=== PATIENT | female | born 1980 | race American Indian/Alaskan Native ===

== ENCOUNTER 2016-09-28 10:48 | Emergency (ER) | payer MEDICAID, OTHER ==
[2016-09-28 11:43] VITALS: BP 133/86
[2016-09-28] MEDS ORDERED: Ondansetron 4 MG/2 ML SDV IV ONE (11:45)
[2016-09-28] MEDS ORDERED: diphenhydrAMINE 50 MG/ML SDV IVPUSH ONE (11:45)
[2016-09-28] MEDS ORDERED: Sodium Chloride 0.9% 10 ML Syringe FLUSH PRN (11:45)
[2016-09-28] MEDS ORDERED: Sodium Chloride 0.9% 1,000 ML IV ONE (11:45)
[2016-09-28] MEDS ORDERED: cefTRIAXone 1 GM in Sodium Chloride 0.9% 50 ML IV ONE (11:46)
[2016-09-28] MEDS ORDERED: Azithromycin 250 MG Tab PO ONE (11:46)
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
[2016-09-28 12:25] LABS: CHLORIDE,CL 110 mmol/L (101-111); SODIUM,NA 144 mmol/L (135-145)
[2016-09-28] MEDS ORDERED: Ketorolac 30 MG/ML SDV IVPUSH ONE (12:43)
[2016-09-28] MEDS ORDERED: Haloperidol Lactate 5 MG/ML SDV IVPUSH ONE (12:52)
== END 2016-09-28 13:40 | disposition home or self-care (01) ==
LOC: DL.ED 10:48
DX: K52.9 Noninfective gastroenteritis and colitis, unspecified (principal); E86.0 Dehydration; T76.21XA Adult sexual abuse, suspected, initial encounter; J45.909 Unspecified asthma, uncomplicated; F17.210 Nicotine dependence, cigarettes, uncomplicated; G43.909 Migraine, unspecified, not intractable, without status migrainosus; Z88.8 Allergy status to other drugs, medicaments and biological substances; Z79.899 Other long term (current) drug therapy; Z90.49 Acquired absence of other specified parts of digestive tract
CPT/HCPCS: 36415; 80053; 80305; 81001; 85025; 86803; 87210; 87340; 87389; 87491; 87591; 96365; 96368; 96375; 99284; A9270; J0696; J1200; J1630; J1885; J2405; J7030; J7050

== ENCOUNTER 2016-09-29 20:44 | Emergency (ER) | payer MEDICAID, OTHER ==
[2016-09-29 22:37] VITALS: BP 121/84
--- NOTE | 2016-09-29 23:23 | EDM.PDOC ---
ED HPI GENERAL MEDICAL PROBLEM - General Chief Complaint: ENT Problem Stated Complaint: TOOTH PULLED/PAIN IN AREA Time Seen by Provider: 09/29/16 22:40 Source of Information: Reports: Patient History Limitations: Reports: No Limitations - History of Present Illness INITIAL COMMENTS - FREE TEXT/NARRATIVE: lower left tooth pulled earlier today increased pain since Onset: Today Left Gums Pain Score (Numeric/FACES): 8 - Related Data Allergies Allergy/AdvReac Type Severity Reaction Status Date / Time acetaminophen Allergy Unknown Shortness Verified 09/29/16 20:59 [From Darvocet-N 100] of Breath erythromycin base Allergy Unknown Cannot Verified 09/29/16 20:59 [Erythromycin Base] Remember metoclopramide HCl Allergy Unknown Shortness Verified 09/29/16 20:59 [From Reglan] of Breath nabumetone [From Relafen] Allergy Unknown Shortness Verified 09/29/16 20:59 of Breath propoxyphene napsylate Allergy Unknown Shortness Verified 09/29/16 20:59 [From Darvocet-N 100] of Breath Home Meds: Home Meds Multivitamin [Multivitamins] 1 tab PO DAILY 09/28/16 [History] Past Medical History - Past Health History Medical/Surgical History: Denies Medical/Surgical History HEENT History: Reports: None Cardiovascular History: Reports: None Respiratory History: Reports: Asthma Gastrointestinal History: Reports: None Genitourinary History: Reports: None 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, , Other (See Below) Other OB/BYN History: tubal ligation Musculoskeletal History: Reports: None Neurological History: Reports: Migraines Other Neuro History: botox treatment took care of headaches Psychiatric History: Reports: None Endocrine/Metabolic History: Reports: None Hematologic History: Reports: None Immunologic History: Reports: None Oncologic (Cancer) History: Reports: None Dermatologic History: Reports: None - Infectious Disease History Infectious Disease History: Reports: Measles - Past Surgical History HEENT Surgical History: Reports: Tonsillectomy Respiratory Surgical History: Reports: None GI Surgical History: Reports: Cholecystectomy Female Surgical History: Reports: Tubal Ligation Social & Family History - Family History Family Medical History: Noncontributory - Tobacco Use Smoking Status *Q: Never Smoker Years of Tobacco use: 1 Packs/Tins Daily: 0.1 Second Hand Smoke Exposure: No - Caffeine Use Caffeine Use: Reports: Coffee, Energy Drinks, Soda Other Caffeine Use: Has 1 energy drink and and 1 soda per day. - Alcohol Use Days Per Week of Alcohol Use: 0 Number of Drinks Per Day: 1 Total Drinks Per Week: 0 - Recreational Drug Use Recreational Drug Use: No - Living Situation & Occupation Living situation: Reports: Single, with Family Occupation: Employed ED ROS ENT - Review of Systems Review Of Systems: See Below Constitutional: Denies: No Symptoms HEENT: Reports: Other (dental pain lower left) Cardiovascular: Reports: No Symptoms GI/Abdominal: Reports: No Symptoms Skin: Reports: No Symptoms Neurological: Reports: No Symptoms ED EXAM, ENT - Physical Exam Exam: See Below Exam Limited By: No Limitations General Appearance: Alert, Moderate Distress Eye Exam: Bilateral Eye: PERRL Ears: Normal External Exam, Normal TMs Nose: Normal Inspection Mouth/Throat: Other (open socket left lower 3rd molar, lower left jaw tender, mild left lymphadenopathy). No: Normal Teeth Head: Atraumatic, Normocephalic Neck: Lymphadenopathy (L) (mild). No: Lymphadenopathy (R) Respiratory/Chest: No Respiratory Distress, Lungs Clear, Normal Breath Sounds Cardiovascular: Normal Peripheral Pulses, Regular Rate, Rhythm Neurological: Alert, Oriented Skin: Warm, Dry, Intact, Normal Color Course - Vital Signs Last Recorded V/S: Last Vital Signs Temp 97.5 F 09/29/16 22:37 Pulse 61 09/29/16 22:37 Resp 14 09/29/16 22:37 BP 121/84 09/29/16 22:37 Pulse Ox 100 09/29/16 22:37 - Orders/Labs/Meds Meds: Medications Discontinued Medications Generic Name Dose Route Start Last Admin Trade Name David PRN Reason Stop Dose Admin Hydrocodone Bitart/Acetaminophen Confirm 09/29/16 23:33 [place] 325-10 Mg Administered 09/29/16 23:34 Dose 3 tab .ROUTE .STK-MED ONE Cephalexin Confirm 09/29/16 23:33 Keflex Administered 09/29/16 23:34 Dose 1,000 mg .ROUTE .STK-MED ONE Departure - Departure Time of Disposition: 23:20 Disposition: Home, Self-Care 01 Condition: Good Clinical Impression: Dental abscess, Pain, dental - Discharge Information Instructions: Dental Dry Socket, [id number] Referrals: PCP,Unobtain [Primary Care Provider] - Forms: ED Department Discharge Additional Instructions: hydrocodone 10/325 one every 4 hours as needed for severe pain #3 ibuprofen 600mg one every 6-8 hours as needed for moderate pain, take with food. Rx #10 Keflex 500mg one 4 times daily Home #2 Rx #28 Follow up with dentist if not improving
[2016-09-29] MEDS ORDERED: Cephalexin 500 MG Cap ONE (23:33)
[2016-09-29] MEDS ORDERED: Cephalexin 500 MG Cap PO ONE (23:33)
[2016-09-29] MEDS ORDERED: Acetaminophen/HYDROcodone 325-10 MG Tab PO ONE (23:33)
[2016-09-29] MEDS ORDERED: Acetaminophen/HYDROcodone 325-10 MG Tab ONE (23:33)
== END 2016-09-29 23:38 | disposition home or self-care (01) ==
LOC: DL.ED 20:44
DX: K04.7 Periapical abscess without sinus (principal); Z88.8 Allergy status to other drugs, medicaments and biological substances; Z79.899 Other long term (current) drug therapy; J45.909 Unspecified asthma, uncomplicated; Z98.51 Tubal ligation status; Z90.49 Acquired absence of other specified parts of digestive tract; Z98.890 Other specified postprocedural states; Z88.6 Allergy status to analgesic agent
CPT/HCPCS: 99283; A9270

== ENCOUNTER 2016-11-09 19:38 | Emergency (ER) | payer MEDICAID, OTHER ==
[2016-11-09 19:48] VITALS: BP 127/72
[2016-11-09] MEDS ORDERED: Ondansetron 4 MG/2 ML SDV IV ONE (19:56)
[2016-11-09] MEDS ORDERED: Sodium Chloride 0.9% 10 ML Syringe FLUSH PRN (19:56)
[2016-11-09] MEDS ORDERED: Sodium Chloride 0.9% 1,000 ML IV ONE (20:26)
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
[2016-11-09] MEDS ORDERED: Ketorolac 30 MG/ML SDV IVPUSH ONE (20:35)
[2016-11-09] MEDS ORDERED: Ondansetron 4 MG Tab.DIS ONE (21:34)
[2016-11-09] MEDS ORDERED: Ondansetron 4 MG Tab.DIS PO ONE (21:34)
== END 2016-11-09 21:39 | disposition home or self-care (01) ==
LOC: DL.ED 19:38
DX: S06.0X0A Concussion without loss of consciousness, initial encounter (principal); F17.210 Nicotine dependence, cigarettes, uncomplicated; G43.919 Migraine, unspecified, intractable, without status migrainosus; Z88.8 Allergy status to other drugs, medicaments and biological substances; Z88.1 Allergy status to other antibiotic agents; Z98.890 Other specified postprocedural states; Z90.49 Acquired absence of other specified parts of digestive tract; Z98.51 Tubal ligation status; W51.XXXA Accidental striking against or bumped into by another person, initial encounter
CPT/HCPCS: 70450; 96361; 96374; 96375; 99283; A9270; J1885; J2405; J7030; J7050

== ENCOUNTER 2017-03-27 10:00 | Emergency (ER) | payer MEDICAID, OTHER ==
--- NOTE | 2017-03-27 10:16 | EDM.PDOCBH ---
ED HPI GENERAL MEDICAL PROBLEM - General Chief Complaint: Behavioral/Psych Stated Complaint: ANEXITY Time Seen by Provider: 03/27/17 10:16 Source of Information: Reports: Patient, Old Records, RN, RN Notes Reviewed History Limitations: Reports: No Limitations - History of Present Illness INITIAL COMMENTS - FREE TEXT/NARRATIVE: Arrives from home by POV with c/o increasing anxiety over the past few weeks, now with several days of recurrent panic attacks. Denies any specific situation or trigger. She did start smoking again to "calm her nerves", but it didn't help. Denies alcohol or substance use. She thinks her anxiety has been worse since moving back here from [place], and maybe due somewhat to the holidays as well. She took Zoloft 50mg for years to treat her anxiety, and it worked well but she hasn't needed it for a few years. She states that she went to [facility] for 2 days in a row and waited all day but they could not fit her in. 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) - Related Data Allergies Allergy/AdvReac Type Severity Reaction Status Date / Time acetaminophen Allergy Unknown Shortness Verified 11/09/16 19:48 [From Darvocet-N 100] of Breath erythromycin base Allergy Unknown Cannot Verified 11/09/16 19:48 [Erythromycin Base] Remember metoclopramide HCl Allergy Unknown Shortness Verified 11/09/16 19:48 [From Reglan] of Breath nabumetone [From Relafen] Allergy Unknown Shortness Verified 11/09/16 19:48 of Breath propoxyphene napsylate Allergy Unknown Shortness Verified 11/09/16 19:48 [From Darvocet-N 100] of Breath Home Meds: Home Meds Multivitamin [Multivitamins] 1 tab PO DAILY 09/28/16 [History] Past Medical History - Past Health History Medical/Surgical History: Denies Medical/Surgical History HEENT History: Reports: None Cardiovascular History: Reports: None Respiratory History: Reports: Asthma Gastrointestinal History: Reports: None Genitourinary History: Reports: None 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, , Other (See Below) Other OB/BYN History: tubal ligation Musculoskeletal History: Reports: None Neurological History: Reports: Migraines Other Neuro History: botox treatment took care of headaches Psychiatric History: Reports: Anxiety, Panic Attack Endocrine/Metabolic History: Reports: None Hematologic History: Reports: None Immunologic History: Reports: None Oncologic (Cancer) History: Reports: None Dermatologic History: Reports: None - Infectious Disease History Infectious Disease History: Reports: Measles - Past Surgical History HEENT Surgical History: Reports: Tonsillectomy Respiratory Surgical History: Reports: None GI Surgical History: Reports: Cholecystectomy Female Surgical History: Reports: Tubal Ligation Social & Family History - Family History Family Medical History: Noncontributory - Tobacco Use Smoking Status *Q: Current Some Day Smoker Years of Tobacco use: 2 Packs/Tins Daily: 0.1 Second Hand Smoke Exposure: Yes - Caffeine Use Caffeine Use: Reports: Coffee, Energy Drinks, Soda Other Caffeine Use: Has 1 energy drink and and 1 soda per day. - Alcohol Use Days Per Week of Alcohol Use: 0 Number of Drinks Per Day: 1 Total Drinks Per Week: 0 - Recreational Drug Use Recreational Drug Use: No - Living Situation & Occupation Living situation: Reports: Single, with Family Occupation: Employed ED ROS GENERAL - Review of Systems Review Of Systems: ROS reveals no pertinent complaints other than HPI. ED EXAM, BEHAVIORAL HEALTH - Physical Exam Exam: See Below Exam Limited By: No Limitations General Appearance: Alert, WD/WN, No Apparent Distress, Anxious Eye Exam: Bilateral Eye: EOMI, Normal Inspection, PERRL Ears: Hearing Grossly Normal Nose: Normal Inspection Throat/Mouth: Normal Inspection Head: Atraumatic, Normocephalic Neck: Normal Inspection Respiratory/Chest: No Respiratory Distress Cardiovascular: Regular Rate, Rhythm, No Edema Neurological: Alert, Normal Mood/Affect, CN II-XII Intact, Normal Cognition, Normal Gait, Normal Reflexes, No Motor/Sensory Deficits, Oriented x 3 Psychiatric: Alert, Normal Affect, Normal Cognition, Normal Mood, Oriented, Tearful, Other (anxious). No: Suicidal Plan, Suicidal Thoughts Skin Exam: Warm, Dry, Intact, Normal color, No rash COURSE, BEHAVIORAL HEALTH COMP - Course Vital Signs: Last Vital Signs Temp 36.9 C 03/27/17 10:03 Pulse 70 03/27/17 10:03 Resp 16 03/27/17 10:03 BP 109/70 12/22/17 10:03 Pulse Ox 100 03/27/17 10:03 Departure - Departure Time of Disposition: 10:24 Disposition: Home, Self-Care 01 Condition: Good Clinical Impression: Severe anxiety with panic - Discharge Information Instructions: Panic Attacks Forms: ED Department Discharge Additional Instructions: Rx: Zoloft 50mg Rx: Clonazepam 1mg *Do not drive while under the influence of this medication. Do no consume alcohol while taking Zoloft or Clonazepam. Avoid nicotine and caffeine to help reduce panic attacks. Follow up in clinic in the next 2 weeks with your primary provider for ongoing medication management.
[2017-03-27 10:19] VITALS: BP 109/70
== END 2017-03-27 10:42 | disposition home or self-care (01) ==
LOC: DL.ED 10:00
DX: F41.0 Panic disorder [episodic paroxysmal anxiety] (principal); F17.210 Nicotine dependence, cigarettes, uncomplicated; Z79.899 Other long term (current) drug therapy; Z88.1 Allergy status to other antibiotic agents; Z88.6 Allergy status to analgesic agent
CPT/HCPCS: 99283

== ENCOUNTER 2017-04-01 09:35 | Emergency (ER) | payer MEDICAID, OTHER ==
--- NOTE | 2017-04-01 09:41 | EDM.PDOCBH ---
ED HPI GENERAL MEDICAL PROBLEM - General Chief Complaint: Behavioral/Psych Stated Complaint: ANXIETY Time Seen by Provider: 04/01/17 09:37 Source of Information: Reports: Patient, Old Records, RN, RN Notes Reviewed History Limitations: Reports: No Limitations - History of Present Illness INITIAL COMMENTS - FREE TEXT/NARRATIVE: Pt seen here on 03/27/17 for anxiety. Now returns with c/o continued anxiety. 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), Other (see below) - Related Data Allergies Allergy/AdvReac Type Severity Reaction Status Date / Time acetaminophen Allergy Unknown Shortness Verified 04/01/17 09:45 [From Darvocet-N 100] of Breath erythromycin base Allergy Unknown Cannot Verified 04/01/17 09:45 [Erythromycin Base] Remember metoclopramide HCl Allergy Unknown Shortness Verified 04/01/17 09:45 [From Reglan] of Breath nabumetone [From Relafen] Allergy Unknown Shortness Verified 04/01/17 09:45 of Breath propoxyphene napsylate Allergy Unknown Shortness Verified 04/01/17 09:45 [From Darvocet-N 100] of Breath Home Meds: Home Meds Multivitamin [Multivitamins] 1 tab PO DAILY 09/28/16 [History] ClonazePAM [KlonoPIN] 1 mg PO DAILY 04/01/17 [History] Sertraline [Zoloft] 50 mg PO DAILY 04/01/17 [History] Past Medical History - Past Health History Medical/Surgical History: Denies Medical/Surgical History HEENT History: Reports: None Cardiovascular History: Reports: None Respiratory History: Reports: Asthma Gastrointestinal History: Reports: None Genitourinary History: Reports: None 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, , Other (See Below) Other OB/BYN History: tubal ligation Musculoskeletal History: Reports: None Neurological History: Reports: Migraines Other Neuro History: botox treatment took care of headaches Psychiatric History: Reports: Anxiety, Panic Attack Endocrine/Metabolic History: Reports: None Hematologic History: Reports: None Immunologic History: Reports: None Oncologic (Cancer) History: Reports: None Dermatologic History: Reports: None - Infectious Disease History Infectious Disease History: Reports: Measles - Past Surgical History HEENT Surgical History: Reports: Tonsillectomy Respiratory Surgical History: Reports: None GI Surgical History: Reports: Cholecystectomy Female Surgical History: Reports: Tubal Ligation Social & Family History - Family History Family Medical History: Noncontributory - Tobacco Use Smoking Status *Q: Current Some Day Smoker Years of Tobacco use: 2 Packs/Tins Daily: 0.1 Second Hand Smoke Exposure: Yes - Caffeine Use Caffeine Use: Reports: Coffee, Energy Drinks, Soda Other Caffeine Use: Has 1 energy drink and and 1 soda per day. - Alcohol Use Days Per Week of Alcohol Use: 0 Number of Drinks Per Day: 1 Total Drinks Per Week: 0 - Recreational Drug Use Recreational Drug Use: No - Living Situation & Occupation Living situation: Reports: Single, with Family Occupation: Employed ED ROS GENERAL - Review of Systems Review Of Systems: ROS reveals no pertinent complaints other than HPI. ED EXAM, BEHAVIORAL HEALTH - Physical Exam Exam: See Below Exam Limited By: No Limitations General Appearance: Alert, WD/WN, No Apparent Distress Eye Exam: Bilateral Eye: Normal Inspection Throat/Mouth: Normal Inspection, Normal Voice, No Airway Compromise Head: Atraumatic, Normocephalic Neck: Normal Inspection Respiratory/Chest: No Respiratory Distress Cardiovascular: Regular Rate, Rhythm Neurological: Alert, Normal Mood/Affect, CN II-XII Intact, Normal Cognition, Normal Gait, No Motor/Sensory Deficits, Oriented x 3 Psychiatric: Other (anxious). No: Homicidal Thoughts, Phobic, Suicidal Plan, Suicidal Thoughts, Auditory Hallucinations, Visual Hallucinations, Paranoid Thoughts Skin Exam: Warm, Dry, Intact, Normal color COURSE, BEHAVIORAL HEALTH COMP - Course Vital Signs: Last Vital Signs Temp 37.1 C 04/01/17 09:53 Pulse 88 04/01/17 09:53 Resp 18 04/01/17 09:53 BP 127/62 04/01/17 09:53 Pulse Ox 100 04/01/17 09:53 Orders, Labs, Meds: Medications Discontinued Medications Generic Name Dose Route Start Last Admin Trade Name David PRN Reason Stop Dose Admin Lorazepam 1 mg 04/01/17 10:05 04/01/17 10:08 Ativan PO 04/01/17 10:06 1 mg ONETIME ONE Administration Discharge vs Psych Eval/Treatment:: 04/01/17 10:12 I called [facility] and spoke with Dr. Tony, who will see the pt for recheck and medication management on Apr.08. Departure - Departure Time of Disposition: 10:12 Disposition: Home, Self-Care 01 Condition: Good Clinical Impression: Severe anxiety with panic - Discharge Information Referrals: Lizbeth Tony MD [Primary Care Provider] - Forms: ED Department Discharge Additional Instructions: Rx: Zoloft 50mg Rx: Clonazepam 1mg Call [facility] this morning to schedule and appointment. I spoke with Dr. Tony and she will see you in clinic on Thursday, Apr.08.
[2017-04-01 09:54] VITALS: BP 127/62
[2017-04-01] MEDS ORDERED: LORazepam 1 MG Tab PO ONE (10:05)
== END 2017-04-01 10:45 | disposition home or self-care (01) ==
LOC: DL.ED 09:35
DX: F41.0 Panic disorder [episodic paroxysmal anxiety] (principal); F17.210 Nicotine dependence, cigarettes, uncomplicated; Z88.8 Allergy status to other drugs, medicaments and biological substances; Z88.1 Allergy status to other antibiotic agents; Z79.899 Other long term (current) drug therapy; Z88.6 Allergy status to analgesic agent
CPT/HCPCS: 99283; A9270

== ENCOUNTER 2017-06-17 00:04 | Emergency (ER) | payer MEDICAID, OTHER ==
[2017-06-17 00:15] VITALS: BP 123/67
[2017-06-17 01:03] LABS: CHLORIDE,CL 105 mmol/L (101-111); SODIUM,NA 138 mmol/L (135-145)
[2017-06-17] MEDS: Ibuprofen 600 MG Tab PO ONE (01:39)
[2017-06-17] MEDS: Cyclobenzaprine 10 MG Tab PO ONE (01:39)
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
== END 2017-06-17 02:32 | disposition home or self-care (01) ==
LOC: DL.ED 00:04
DX: S16.1XXA Strain of muscle, fascia and tendon at neck level, initial encounter (principal); F17.210 Nicotine dependence, cigarettes, uncomplicated; J45.909 Unspecified asthma, uncomplicated; Z79.899 Other long term (current) drug therapy; Z88.6 Allergy status to analgesic agent; Z88.1 Allergy status to other antibiotic agents; Z88.8 Allergy status to other drugs, medicaments and biological substances; Y04.0XXA Assault by unarmed brawl or fight, initial encounter
CPT/HCPCS: 36415; 70450; 70486; 72125; 72128; 80053; 80305; 81001; 85025; 99285; A9270; G0480

== ENCOUNTER 2017-07-04 10:45 | Emergency (ER) | payer MEDICAID, OTHER ==
[2017-07-04 11:04] VITALS: BP 119/71
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
== END 2017-07-04 11:21 | disposition home or self-care (01) ==
LOC: DL.ED 10:45
DX: M54.12 Radiculopathy, cervical region (principal); M25.512 Pain in left shoulder; F17.210 Nicotine dependence, cigarettes, uncomplicated; Z79.899 Other long term (current) drug therapy; Z88.6 Allergy status to analgesic agent; Z88.1 Allergy status to other antibiotic agents; Z88.8 Allergy status to other drugs, medicaments and biological substances
CPT/HCPCS: 99283

== ENCOUNTER 2017-11-25 09:58 | Emergency (ER) | payer MEDICAID, OTHER ==
[2017-11-25] MEDS ORDERED: Sodium Chloride 0.9% 1,000 ML IV ONE (10:36)
[2017-11-25] MEDS ORDERED: Ondansetron 4 MG/2 ML SDV IV ONE (10:36)
--- NOTE | 2017-11-25 10:41 | EDM.PDOC ---
ED HPI GENERAL MEDICAL PROBLEM - General Chief Complaint: Abdominal Pain Stated Complaint: APPENDIX, SENT FROM S Time Seen by Provider: 11/25/17 10:30 Source of Information: Reports: Patient History Limitations: Reports: No Limitations - History of Present Illness INITIAL COMMENTS - FREE TEXT/NARRATIVE: This 37 yo female patient reports to the ED with left lower quadrant abdominal pain. The patient reports her symptoms started yesterday and have been getting worse. The patient reports her pain gets better when she presses on her left lower abdomen. The patient reports that she did have a tubal ligation in the past. The patient reports that she did report to the [facility], but was advised to come to the ED by the nurse due to a possible appendicitis. The patient reports that she has not taken anything for her pain due to feeling nauseated. Onset Date: 11/24/17 Duration: Constant, Getting Worse Location: Reports: Abdomen (LLQ) Quality: Reports: Ache, Sharp, Stabbing Severity: Severe (Rated pain at a 7/10) Improves with: Reports: Other (pressing on her left lower quadrant) Worsens with: Reports: Movement Associated Symptoms: Reports: Nausea/Vomiting Left Lower Abdominal Pain Score (Numeric/FACES): 7 - Related Data Allergies Allergy/AdvReac Type Severity Reaction Status Date / Time acetaminophen Allergy Unknown Shortness Verified 06/17/17 00:23 [From Darvocet-N 100] of Breath erythromycin base Allergy Unknown Cannot Verified 06/17/17 00:23 [Erythromycin Base] Remember metoclopramide HCl Allergy Unknown Shortness Verified 06/17/17 00:23 [From Reglan] of Breath nabumetone [From Relafen] Allergy Unknown Shortness Verified 06/17/17 00:23 of Breath propoxyphene napsylate Allergy Unknown Shortness Verified 06/17/17 00:23 [From Darvocet-N 100] of Breath Home Meds: Home Meds Multivitamin [Multivitamins] 1 tab PO DAILY 09/28/16 [History] ClonazePAM [KlonoPIN] 0.5 mg PO DAILY 04/01/17 [History] Ibuprofen 1 tab PO Q4HR PRN 07/04/17 [History] busPIRone HCl [Buspirone HCl] 1 tab PO DAILY 07/04/17 [History] Past Medical History - Past Health History Medical/Surgical History: Denies Medical/Surgical History HEENT History: Reports: None Cardiovascular History: Reports: None Respiratory History: Reports: Asthma Gastrointestinal History: Reports: None Genitourinary History: Reports: None 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, , Other (See Below) Other COKE CRUSHER OPERATOR History: tubal ligation Musculoskeletal History: Reports: None Neurological History: Reports: Migraines Other Neuro History: botox treatment took care of headaches Psychiatric History: Reports: Anxiety, Panic Attack Endocrine/Metabolic History: Reports: None Hematologic History: Reports: None Immunologic History: Reports: None Oncologic (Cancer) History: Reports: None Dermatologic History: Reports: None - Infectious Disease History Infectious Disease History: Reports: Measles - Past Surgical History HEENT Surgical History: Reports: Tonsillectomy Respiratory Surgical History: Reports: None GI Surgical History: Reports: Cholecystectomy Female Surgical History: Reports: Tubal Ligation Social & Family History - Family History Family Medical History: Noncontributory - Tobacco Use Smoking Status *Q: Current Every Day Smoker Years of Tobacco use: 1 Packs/Tins Daily: 1 - Caffeine Use Caffeine Use: Reports: Coffee, Energy Drinks, Soda, Tea Other Caffeine Use: Has 1 energy drink and and 1 soda per day. - Recreational Drug Use Recreational Drug Use: No - Living Situation & Occupation Living situation: Reports: Single, with Family Occupation: Employed ED ROS GENERAL - Review of Systems Review Of Systems: ROS reveals no pertinent complaints other than HPI. ED EXAM, GI/ABD - Physical Exam Exam: See Below Exam Limited By: No Limitations General Appearance: Alert, WD/WN, Moderate Distress Eyes: Bilateral: Normal Appearance, EOMI Ears: Normal External Exam, Normal Canal, Hearing Grossly Normal, Normal TMs Nose: Normal Inspection, Normal Mucosa, No Blood Throat/Mouth: Normal Inspection, Normal Lips, Normal Teeth, Normal Gums, Normal Oropharynx, Normal Voice, No Airway Compromise Head: Atraumatic, Normocephalic Neck: Normal Inspection, Supple, Non-Tender, Full Range of Motion Respiratory/Chest: No Respiratory Distress, Lungs Clear, Normal Breath Sounds, No Accessory Muscle Use, Chest Non-Tender Cardiovascular: Normal Peripheral Pulses, Regular Rate, Rhythm, No Edema, No Gallop, No JVD, No Murmur, No Rub GI/Abdominal Exam: Normal Bowel Sounds, Soft, No Organomegaly, No Distention, No Abnormal Bruit, No Mass, Guarding, Tender (LLQ ) (Female) Exam: Deferred Rectal (Female) Exam: Deferred Back Exam: Normal Inspection, Full Range of Motion. No: CVA Tenderness (L), CVA Tenderness (R) Extremities: Normal Inspection, Normal Range of Motion, Non-Tender, Normal Capillary Refill, No Pedal Edema Neurological: Alert, Oriented, CN II-XII Intact, Normal Cognition, Normal Gait, Normal Reflexes, No Motor/Sensory Deficits Psychiatric: Normal Affect, Normal Mood Skin Exam: Warm, Dry, Intact, Normal Color, No Rash Lymphatic: No Adenopathy Course - Vital Signs Last Recorded V/S: Last Vital Signs Temp 37.0 C 11/25/17 12:22 Pulse 67 11/25/17 12:22 Resp 15 11/25/17 12:22 BP 120/96 H 11/25/17 12:22 Pulse Ox 100 11/25/17 12:22 - Orders/Labs/Meds Orders: Active Orders 24 hr Category Date Time Status UA W/MICROSCOPIC [URIN] Stat Lab 11/25/17 10:43 Ordered Sodium Chloride 0.9% [Normal Saline] 1,000 ml Med 11/25/17 10:36 Active IV .BOLUS Medication Orders Sodium Chloride (Normal Saline) 1,000 mls @ 250 mls/hr IV .BOLUS ONE Stop: 11/25/17 14:35 Last Admin: 11/25/17 10:51 Dose: 250 mls/hr Labs: Laboratory Tests 11/25/17 11/25/17 11/25/17 Range/Units 10:42 10:42 10:43 WBC 7.3 (5.0-10.0) 10^3/uL RBC 4.56 (4.2-5.4) 10^6/uL Hgb 10.5 L (12.0-16.0) g/dL Hct 34.4 L (37.0-47.0) % MCV 75.4 L (80-100) fL MCH 23.0 L (27.0-34.0) pg MCHC 30.5 L (33.0-35.0) g/dL Plt Count 344 (150-450) 10^3/uL Neut % (Auto) 58.7 (42.2-75.2) % Lymph % (Auto) 29.0 (20.5-50.1) % [place] % (Auto) 9.0 H (2-8) % Eos % (Auto) 3.0 (1.0-3.0) % Baso % (Auto) 0.3 (0.0-1.0) % Sodium 137 (135-145) mmol/L Potassium 3.6 (3.6-5.0) mmol/L Chloride 106 (101-111) mmol/L Carbon Dioxide 23.0 (21.0-31.0) mmol/L Anion Gap 11.6 BUN 11 (7-18) mg/dL Creatinine 0.8 (0.6-1.3) mg/dL Est Cr Clr Drug Dosing 87.48 mL/min Estimated GFR (MDRD) > 60 BUN/Creatinine Ratio 13.75 Glucose 108 H (74-105) mg/dL Calcium 8.9 (8.4-10.2) mg/dl Total Bilirubin 0.6 (0.2-1.0) mg/dL AST 31 (10-42) IU/L ALT 33 (10-60) IU/L Alkaline Phosphatase 66 (42-121) IU/L Total Protein 7.6 (6.7-8.2) g/dl Albumin 4.1 (3.2-5.5) g/dl Globulin 3.5 Albumin/Globulin Ratio 1.17 Urine Color Yellow (YELLOW) Urine Appearance Slightly cloudy (CLEAR) Urine pH 6.0 (5.0-9.0) Ur Specific [place] 1.010 (1.005-1.030) Urine Protein Negative (NEGATIVE) Urine Glucose (UA) Negative (NEGATIVE) Urine Ketones Negative (NEGATIVE) Urine Occult Blood Negative (NEGATIVE) Urine Nitrite Negative (NEGATIVE) Urine Bilirubin Negative (NEGATIVE) Urine Urobilinogen 0.2 (0.2-1.0) mg/dL Ur Leukocyte Esterase Negative (NEGATIVE) Urine RBC 0-5 /HPF Urine WBC 0-5 (0-5/HPF) /HPF Ur Epithelial Cells Few /HPF Urine Bacteria Few (0-FEW/HPF) /HPF Urine Mucus Few H /LPF Urine Other See note Meds: Medications Generic Name Dose Route Start Last Admin Trade Name Freq PRN Reason Stop Dose Admin Sodium Chloride 1,000 mls @ 250 mls/hr 11/25/17 10:36 11/25/17 10:51 Normal Saline IV 11/25/17 14:35 250 mls/hr .BOLUS ONE Administration Discontinued Medications Generic Name Dose Route Start Last Admin Trade Name David PRN Reason Stop Dose Admin Iopamidol 75 ml 11/25/17 11:30 11/25/17 11:53 Isovue-300 (61%) IVPUSH 11/25/17 11:31 75 ml ONETIME ONE Administration Morphine Sulfate 2 mg 11/25/17 11:33 11/25/17 11:42 Morphine IVPUSH 11/25/17 11:34 Not Given ONETIME ONE Morphine Sulfate Confirm 11/25/17 11:38 11/25/17 11:41 Morphine Administered 11/25/17 11:39 2 mg Dose Administration 4 mg .ROUTE .STK-MED ONE Morphine Sulfate 2 mg 11/25/17 12:50 11/25/17 13:00 Morphine IVPUSH 11/25/17 12:51 Not Given ONETIME ONE Morphine Sulfate Confirm 11/25/17 12:55 11/25/17 13:02 Morphine Administered 11/25/17 12:56 2 mg Dose Administration 4 mg .ROUTE .STK-MED ONE Ondansetron HCl 4 mg 11/25/17 10:36 11/25/17 10:51 Zofran IV 11/25/17 10:37 4 mg ONETIME ONE Administration Departure - Departure Time of Disposition: 13:33 Disposition: Home, Self-Care 01 Condition: Fair Clinical Impression: Diverticulosis large intestine w/o perforation or abscess w/o bleeding - Discharge Information *PRESCRIPTION DRUG MONITORING PROGRAM REVIEWED*: Yes *COPY OF PRESCRIPTION DRUG MONITORING REPORT IN PATIENT SELAM: Not Applicable Instructions: Diverticulosis Forms: ED Department Discharge Care Plan Goals: The patient was advised of the examination, lab and CT results during the visit. The patient was discharged with scripts for Cipro (500 mg) to take 1 by mouth 2 times per day, Metronidazole (500 mg) to take 1 by mouth 3 times per day and [place] (5/325) #8 to take 1 by mouth every 6 hours as needed. If the patient has any additional symptoms or concerns, the patient should either follow-up with her primary care facility or return to the emergency department. - My Orders Last 24 Hours: My Active Orders 11/25/17 10:36 Sodium Chloride 0.9% [Normal Saline] 1,000 ml IV .BOLUS 11/25/17 10:43 UA W/MICROSCOPIC [URIN] Stat - Assessment/Plan Last 24 Hours: My Active Orders 11/25/17 10:36 Sodium Chloride 0.9% [Normal Saline] 1,000 ml IV .BOLUS 11/25/17 10:43 UA W/MICROSCOPIC [URIN] Stat
[2017-11-25 11:08] LABS: ANION GAP 11.6; CHLORIDE,CL 106 mmol/L (101-111); SODIUM,NA 137 mmol/L (135-145)
[2017-11-25] MEDS ORDERED: Iopamidol 612 MG/ML 75 ML Bottle IVPUSH ONE (11:30)
[2017-11-25] MEDS ORDERED: Morphine 2 MG/ML Syringe IVPUSH ONE ×2 (11:33→12:50)
[2017-11-25] MEDS ORDERED: Morphine 4 MG/ML Syringe ONE (11:38)
[2017-11-25 12:23] VITALS: BP 120/96
[2017-11-25] MEDS: Morphine 4 MG/ML Syringe ONE ×2 (13:00→13:02)
--- NOTE | 2017-11-25 13:20 | CT ---
Clinical history: 37-year-old 157 pound female "smoker" with known kidney stones and now left lower a bdominal pain (no hematuria and WBC is normal). Scan technique: Volume acquisition of data from the abdomen and pelvis obtained without oral contrast but during intravenous infusion 75 cc nonionic Isovue contrast while patient was lying supine on the Siemens multi slice scanner [place], [place]. All data archived in [employer] PACS system for storage, reformatting axial/sagittal/coronal planes and study. Interpretation: 1. Diverticula sigmoid colon without current signs of associated inflammation i.e. no pericolonic inf lammatory "dirty" peritoneal fat, abscess or mechanical bowel obstruction. 2. Midline uterus unremarkable. No adnexal mass lesions or free fluid in the cul-de-sac. Symmetricall y distended normal appearing urinary bladder without intraluminal calcification. 3. Cholecystectomy. Liver, stomach, spleen, pancreas, adrenal glands and kidneys unremarkable except for tiny punctate calcifications upper pole calyces kidneys and lower pole calyx of the left kidney ( no obstructive uropathy) i.e. nephrolithiasis. 4. No ventral wall or inguinal hernias. Lumbar spine unremarkable. 5. Normal caliber aortoiliac vessels. No sign of aneurysm or dissection. 6. Normal cardiac silhouette. Lung bases clear. CONCLUSION: Bilateral nephrolithiasis (no obstruction). Sigmoid diverticulosis (no inflammation). Cho lecystectomy.
== END 2017-11-25 13:42 | disposition home or self-care (01) ==
LOC: DL.ED 09:58
DX: K57.30 Diverticulosis of large intestine without perforation or abscess without bleeding (principal); F17.210 Nicotine dependence, cigarettes, uncomplicated; Z88.1 Allergy status to other antibiotic agents; Z88.8 Allergy status to other drugs, medicaments and biological substances; Z79.899 Other long term (current) drug therapy
CPT/HCPCS: 36415; 74177; 80053; 81001; 85025; 96361; 96374; 96375; 96376; 99283; 99284; J2270; J2405; J7030; Q9967

== ENCOUNTER 2017-11-27 16:57 | Emergency (ER) | payer OTHER ==
[2017-11-27 17:18] VITALS: BP 119/60
[2017-11-27] MEDS ORDERED: Sodium Chloride 0.9% 1,000 ML IV ONE (17:53)
[2017-11-27] MEDS ORDERED: Ondansetron 4 MG/2 ML SDV IV ONE (17:53)
--- NOTE | 2017-11-27 18:13 | EDM.PDOC ---
<Edgar Walsh M - Last Filed: 11/27/17 18:46> ED HPI GENERAL MEDICAL PROBLEM - General Chief Complaint: Abdominal Pain Stated Complaint: PAIN IN COLON. [phone] Time Seen by Provider: 11/27/17 17:55 Source of Information: Reports: Patient History Limitations: Reports: No Limitations - History of Present Illness INITIAL COMMENTS - FREE TEXT/NARRATIVE: This 37 yo female patient reports to the ED due to continued abdominal pain. The patient reports her pain is in the left lower quadrant and has gotten worse than it was 2 days ago. The patient was seen in the ED 2 days ago for similar symptoms. The patient was started on Cipro, Metronidazole and Viborg for diverticulitis. The patient reports that since she started the medications, she has been nauseated and unable to eat or drink anything. The patient did report to the ED drinking a large soda. Duration: Day(s):, Constant, Getting Worse Location: Reports: Abdomen (LLQ) Quality: Reports: Ache, Dull Severity: Moderate Improves with: Reports: None Worsens with: Reports: None Context: Reports: Other Associated Symptoms: Reports: No Other Symptoms - Related Data Allergies Allergy/AdvReac Type Severity Reaction Status Date / Time acetaminophen Allergy Unknown Shortness Verified 11/27/17 17:07 [From Darvocet-N 100] of Breath erythromycin base Allergy Unknown Cannot Verified 11/27/17 17:07 [Erythromycin Base] Remember metoclopramide HCl Allergy Unknown Shortness Verified 11/27/17 17:07 [From Reglan] of Breath nabumetone [From Relafen] Allergy Unknown Shortness Verified 11/27/17 17:07 of Breath propoxyphene napsylate Allergy Unknown Shortness Verified 11/27/17 17:07 [From Darvocet-N 100] of Breath Home Meds: Home Meds PNV95/Ferrous Fumarate/FA [ Tablet] 1 tab PO DAILY 11/27/17 [History] Past Medical History - Past Health History Medical/Surgical History: Denies Medical/Surgical History HEENT History: Reports: None Cardiovascular History: Reports: None Respiratory History: Reports: Asthma Gastrointestinal History: Reports: None Genitourinary History: Reports: None 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, , Other (See Below) Other PIECE DYER History: tubal ligation Musculoskeletal History: Reports: None Neurological History: Reports: Migraines Other Neuro History: botox treatment took care of headaches Psychiatric History: Reports: Anxiety, Panic Attack Endocrine/Metabolic History: Reports: None Hematologic History: Reports: None Immunologic History: Reports: None Oncologic (Cancer) History: Reports: None Dermatologic History: Reports: None - Infectious Disease History Infectious Disease History: Reports: Measles - Past Surgical History HEENT Surgical History: Reports: Tonsillectomy Respiratory Surgical History: Reports: None GI Surgical History: Reports: Cholecystectomy Female Surgical History: Reports: Tubal Ligation Social & Family History - Family History Family Medical History: Noncontributory - Tobacco Use Smoking Status *Q: Current Every Day Smoker Years of Tobacco use: 4 Packs/Tins Daily: 0.5 - Caffeine Use Caffeine Use: Reports: Coffee, Energy Drinks, Soda, Tea Other Caffeine Use: Has 1 energy drink and and 1 soda per day. - Recreational Drug Use Recreational Drug Use: No - Living Situation & Occupation Living situation: Reports: Single, with Family Occupation: Employed ED ROS GENERAL - Review of Systems Review Of Systems: ROS reveals no pertinent complaints other than HPI. ED EXAM, GI/ABD - Physical Exam Exam: See Below Exam Limited By: No Limitations General Appearance: Alert, WD/WN, Moderate Distress Eyes: Bilateral: Normal Appearance, EOMI, Erythema Ears: Normal External Exam, Normal Canal, Hearing Grossly Normal, Normal TMs Nose: Normal Inspection, Normal Mucosa, No Blood Throat/Mouth: Normal Inspection, Normal Lips, Normal Teeth, Normal Gums, Normal Oropharynx, Normal Voice, No Airway Compromise Head: Atraumatic, Normocephalic Neck: Normal Inspection, Supple, Non-Tender, Full Range of Motion Respiratory/Chest: No Respiratory Distress, Lungs Clear, Normal Breath Sounds, No Accessory Muscle Use, Chest Non-Tender Cardiovascular: Normal Peripheral Pulses, Regular Rate, Rhythm, No Edema, No Gallop, No JVD, No Murmur, No Rub GI/Abdominal Exam: No Organomegaly, No Distention, No Abnormal Bruit, No Mass, Pelvis Stable, Tender (LLQ) (Female) Exam: Deferred Rectal (Female) Exam: Deferred Back Exam: Normal Inspection, Full Range of Motion, NT Extremities: Normal Inspection, Normal Range of Motion, Non-Tender, Normal Capillary Refill, No Pedal Edema Neurological: Alert, Oriented, CN II-XII Intact, Normal Cognition, Normal Gait, Normal Reflexes, No Motor/Sensory Deficits Psychiatric: Normal Affect, Normal Mood Skin Exam: Warm, Dry, Intact, Normal Color, No Rash Lymphatic: No Adenopathy Course - Vital Signs Last Recorded V/S: Last Vital Signs Temp 36.6 C 11/27/17 17:17 Pulse 90 11/27/17 17:17 Resp 16 11/27/17 17:17 BP 119/60 11/27/17 17:17 Pulse Ox 100 11/27/17 17:17 - Orders/Labs/Meds Orders: Active Orders 24 hr Category Date Time Status CULTURE BLOOD [BC] Stat Lab 11/27/17 18:05 Received UA W/MICROSCOPIC [URIN] Stat Lab 11/27/17 17:56 Ordered Acetaminophen/HYDROcodone [Viborg 325-10 MG] Med 11/27/17 21:41 Once 1 tab PO ONETIME ONE Medication Orders Hydrocodone Bitart/Acetaminophen (Viborg 325-10 Mg) 1 tab PO ONETIME ONE Stop: 11/27/17 21:42 Labs: Laboratory Tests 11/27/17 11/27/17 11/27/17 Range/Units 17:56 17:56 18:05 WBC 6.6 (5.0-10.0) 10^3/uL RBC 4.55 (4.2-5.4) 10^6/uL Hgb 10.6 L (12.0-16.0) g/dL Hct 34.4 L (37.0-47.0) % MCV 75.6 L (80-100) fL MCH 23.3 L (27.0-34.0) pg MCHC 30.8 L (33.0-35.0) g/dL Plt Count 365 (150-450) 10^3/uL Neut % (Auto) 61.6 (42.2-75.2) % Lymph % (Auto) 30.6 (20.5-50.1) % [place] % (Auto) 4.8 (2-8) % Eos % (Auto) 2.7 (1.0-3.0) % Baso % (Auto) 0.3 (0.0-1.0) % Sodium (135-145) mmol/L Potassium (3.6-5.0) mmol/L Chloride (101-111) mmol/L Carbon Dioxide (21.0-31.0) mmol/L Anion Gap BUN (7-18) mg/dL Creatinine (0.6-1.3) mg/dL Est Cr Clr Drug Dosing Estimated GFR (MDRD) BUN/Creatinine Ratio Glucose (74-105) mg/dL Lactic Acid (0.5-2.2) mmol/L Calcium (8.4-10.2) mg/dl Total Bilirubin (0.2-1.0) mg/dL AST (10-42) IU/L ALT (10-60) IU/L Alkaline Phosphatase (42-121) IU/L Total Protein (6.7-8.2) g/dl Albumin (3.2-5.5) g/dl Globulin Albumin/Globulin Ratio Urine Color Yellow (YELLOW) Urine Appearance Slightly cloudy (CLEAR) Urine pH 6.5 (5.0-9.0) Ur Specific [place] 1.010 (1.005-1.030) Urine Protein Negative (NEGATIVE) Urine Glucose (UA) Negative (NEGATIVE) Urine Ketones Negative (NEGATIVE) Urine Occult Blood Negative (NEGATIVE) Urine Nitrite Negative (NEGATIVE) Urine Bilirubin Negative (NEGATIVE) Urine Urobilinogen 0.2 (0.2-1.0) mg/dL Ur Leukocyte Esterase Trace H (NEGATIVE) Urine RBC 0-5 /HPF Urine WBC 0-5 (0-5/HPF) /HPF Ur Epithelial Cells Moderate H /HPF Urine Bacteria Moderate H (0-FEW/HPF) /HPF Urine Other See note Urine Opiates Screen Positive H (NEGATIVE) Ur Oxycodone Screen Positive H (NEGATIVE) Urine Methadone Screen Negative (NEGATIVE) Ur Barbiturates Screen Negative (NEGATIVE) U Tricyclic Antidepress Negative (NEGATIVE) Ur Phencyclidine Scrn Negative (NEGATIVE) Ur Amphetamine Screen Negative (NEGATIVE) U Methamphetamines Scrn Negative (NEGATIVE) Urine MDMA Screen Negative (NEGATIVE) U Benzodiazepines Scrn Negative (NEGATIVE) Urine Cocaine Screen Negative (NEGATIVE) U Marijuana (THC) Screen Negative (NEGATIVE) 11/27/17 11/27/17 Range/Units 18:05 18:05 WBC (5.0-10.0) 10^3/uL RBC (4.2-5.4) 10^6/uL Hgb (12.0-16.0) g/dL Hct (37.0-47.0) % MCV (80-100) fL MCH (27.0-34.0) pg MCHC (33.0-35.0) g/dL Plt Count (150-450) 10^3/uL Neut % (Auto) (42.2-75.2) % Lymph % (Auto) (20.5-50.1) % [place] % (Auto) (2-8) % Eos % (Auto) (1.0-3.0) % Baso % (Auto) (0.0-1.0) % Sodium 137 (135-145) mmol/L Potassium 4.0 (3.6-5.0) mmol/L Chloride 106 (101-111) mmol/L Carbon Dioxide 23.0 (21.0-31.0) mmol/L Anion Gap 12.0 BUN 7 (7-18) mg/dL Creatinine 0.8 (0.6-1.3) mg/dL Est Cr Clr Drug Dosing TNP Estimated GFR (MDRD) > 60 BUN/Creatinine Ratio 8.75 Glucose 103 (74-105) mg/dL Lactic Acid 0.7 (0.5-2.2) mmol/L Calcium 8.9 (8.4-10.2) mg/dl Total Bilirubin 0.7 (0.2-1.0) mg/dL AST 24 (10-42) IU/L ALT 25 (10-60) IU/L Alkaline Phosphatase 68 (42-121) IU/L Total Protein 7.8 (6.7-8.2) g/dl Albumin 4.3 (3.2-5.5) g/dl Globulin 3.5 Albumin/Globulin Ratio 1.23 Urine Color (YELLOW) Urine Appearance (CLEAR) Urine pH (5.0-9.0) Ur Specific [place] (1.005-1.030) Urine Protein (NEGATIVE) Urine Glucose (UA) (NEGATIVE) Urine Ketones (NEGATIVE) Urine Occult Blood (NEGATIVE) Urine Nitrite (NEGATIVE) Urine Bilirubin (NEGATIVE) Urine Urobilinogen (0.2-1.0) mg/dL Ur Leukocyte Esterase (NEGATIVE) Urine RBC /HPF Urine WBC (0-5/HPF) /HPF Ur Epithelial Cells /HPF Urine Bacteria (0-FEW/HPF) /HPF Urine Other Urine Opiates Screen (NEGATIVE) Ur Oxycodone Screen (NEGATIVE) Urine Methadone Screen (NEGATIVE) Ur Barbiturates Screen (NEGATIVE) U Tricyclic Antidepress (NEGATIVE) Ur Phencyclidine Scrn (NEGATIVE) Ur Amphetamine Screen (NEGATIVE) U Methamphetamines Scrn (NEGATIVE) Urine MDMA Screen (NEGATIVE) U Benzodiazepines Scrn (NEGATIVE) Urine Cocaine Screen (NEGATIVE) U Marijuana (THC) Screen (NEGATIVE) Meds: Medications Generic Name Dose Route Start Last Admin Trade Name Freq PRN Reason Stop Dose Admin Hydrocodone Bitart/Acetaminophen 1 tab 11/27/17 21:41 [place] 325-10 Mg PO 11/27/17 21:42 ONETIME ONE Discontinued Medications Generic Name Dose Route Start Last Admin Trade Name Freq PRN Reason Stop Dose Admin Sodium Chloride 1,000 mls @ 999 mls/hr 11/27/17 17:53 11/27/17 18:07 Normal Saline IV 11/27/17 18:53 999 mls/hr .BOLUS ONE Administration Morphine Sulfate 2 mg 11/27/17 20:12 11/27/17 20:20 Morphine IVPUSH 11/27/17 20:13 2 mg ONETIME ONE Administration Ondansetron HCl 4 mg 11/27/17 17:53 11/27/17 18:08 Zofran IV 11/27/17 17:54 4 mg ONETIME ONE Administration Departure - Departure Disposition: Home, Self-Care 01 Clinical Impression: Renal colic on left side, Bilateral nephrolithiasis - Discharge Information Instructions: Kidney Stones, [id number] Referrals: Lizbeth Tony MD [Primary Care Provider] - Forms: ED Department Discharge Additional Instructions: 1) drink lots of liquids 2) follow up at clinic or recheck if there is any change or concern rx given; vicodin 5/325mg tid prn x 12 - My Orders Last 24 Hours: My Active Orders 11/27/17 21:41 Acetaminophen/HYDROcodone [Viborg 325-10 MG] 1 tab PO ONETIME ONE - Assessment/Plan Last 24 Hours: My Active Orders 11/27/17 21:41 Acetaminophen/HYDROcodone [Viborg 325-10 MG] 1 tab PO ONETIME ONE <Ronaldo Muir - Last Filed: 11/27/17 21:44> Course - Re-Assessments/Exams Free Text/Narrative Re-Assessment/Exam: 11/27/17 21:41 results discussed with pt who is feeling better but not 100% Departure - Departure Time of Disposition: 21:42 Condition: Fair
[2017-11-27 18:31] LABS: CHLORIDE,CL 106 mmol/L (101-111); SODIUM,NA 137 mmol/L (135-145)
[2017-11-27] MEDS ORDERED: Morphine 2 MG/ML Syringe IVPUSH ONE (20:12)
[2017-11-27] MEDS ORDERED: Acetaminophen/HYDROcodone 325-10 MG Tab PO ONE (21:41)
== END 2017-11-27 21:57 | disposition home or self-care (01) ==
LOC: DL.ED 16:57
DX: N20.0 Calculus of kidney (principal); F17.210 Nicotine dependence, cigarettes, uncomplicated; Z88.1 Allergy status to other antibiotic agents
CPT/HCPCS: 36415; 74176; 80053; 80305; 81001; 83605; 85025; 87040; 96361; 96374; 96375; 99284; A9270; J2270; J2405; J7030

== ENCOUNTER 2017-11-30 12:06 | Emergency (ER) | payer OTHER ==
[2017-11-30] MEDS ORDERED: HYDROmorphone 0.5 MG/0.5 ML Syringe IVPUSH ONE (14:24)
--- NOTE | 2017-11-30 14:35 | EDM.PDOC ---
ED HPI GENERAL MEDICAL PROBLEM - General Chief Complaint: Abdominal Pain Stated Complaint: [id number] LOWER LEFT KIDNEY PAIN Time Seen by Provider: 11/30/17 14:15 Source of Information: Reports: Patient History Limitations: Reports: No Limitations - History of Present Illness INITIAL COMMENTS - FREE TEXT/NARRATIVE: This 37 yo female patient reports to the emergency department for the 3rd visit in less than 1 week. The patient continues to report that she has severe left lower quadrant pain. The patient reports some temporary symptom relief from the pain medications, but continues to have pain after the pain medication wears off. The patient reports she attempted to be seen at the [facility], but was advised to return to the emergency department. This patient has had 2 CT scans of her abdomen and pelvis reporting that the patient has numerous small punctate kidney stones and ticks in her colon with no evidence of diffuse infection. The patient has also had 3 different sets of labs with no major changes. Onset Date: 11/25/17 Duration: Constant, Getting Worse Location: Reports: Abdomen (LLQ abdominal pain) Quality: Reports: Ache, Sharp Severity: Severe Improves with: Reports: None Worsens with: Reports: None Associated Symptoms: Reports: No Other Symptoms Left Lower Abdominal Pain Score (Numeric/FACES): 8 - Related Data Allergies Allergy/AdvReac Type Severity Reaction Status Date / Time acetaminophen Allergy Unknown Shortness Verified 11/30/17 12:24 [From Darvocet-N 100] of Breath erythromycin base Allergy Unknown Cannot Verified 11/30/17 12:24 [Erythromycin Base] Remember metoclopramide HCl Allergy Unknown Shortness Verified 11/30/17 12:24 [From Reglan] of Breath nabumetone [From Relafen] Allergy Unknown Shortness Verified 11/30/17 12:24 of Breath propoxyphene napsylate Allergy Unknown Shortness Verified 11/30/17 12:24 [From Darvocet-N 100] of Breath Home Meds: Home Meds PNV95/Ferrous Fumarate/FA [ Tablet] 1 tab PO DAILY 11/27/17 [History] Past Medical History - Past Health History Medical/Surgical History: Denies Medical/Surgical History HEENT History: Reports: None Cardiovascular History: Reports: None Respiratory History: Reports: Asthma Gastrointestinal History: Reports: Diverticulosis Genitourinary History: Reports: Renal Calculus 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: , Other (See Below) Other TOWER SUPERVISOR History: tubal ligation Musculoskeletal History: Reports: None Neurological History: Reports: Migraines Other Neuro History: botox treatment took care of headaches Psychiatric History: Reports: Anxiety, Panic Attack Endocrine/Metabolic History: Reports: None Hematologic History: Reports: None Immunologic History: Reports: None Oncologic (Cancer) History: Reports: None Dermatologic History: Reports: None - Infectious Disease History Infectious Disease History: Reports: Measles - Past Surgical History HEENT Surgical History: Reports: Tonsillectomy Respiratory Surgical History: Reports: None GI Surgical History: Reports: Cholecystectomy Female Surgical History: Reports: Tubal Ligation Social & Family History - Family History Family Medical History: Noncontributory - Tobacco Use Smoking Status *Q: Current Every Day Smoker Years of Tobacco use: 4 Packs/Tins Daily: 0.5 - Caffeine Use Caffeine Use: Reports: Coffee, Energy Drinks, Soda, Tea Other Caffeine Use: Has 1 energy drink and and 1 soda per day. - Living Situation & Occupation Living situation: Reports: Single, with Family Occupation: Employed ED ROS GENERAL - Review of Systems Review Of Systems: ROS reveals no pertinent complaints other than HPI. ED EXAM, GI/ABD - Physical Exam Exam: See Below Exam Limited By: No Limitations General Appearance: Alert, WD/WN, Moderate Distress Eyes: Bilateral: Normal Appearance, EOMI Ears: Normal External Exam, Normal Canal, Hearing Grossly Normal, Normal TMs Nose: Normal Inspection, Normal Mucosa, No Blood Throat/Mouth: Normal Inspection, Normal Lips, Normal Teeth, Normal Gums, Normal Oropharynx, Normal Voice, No Airway Compromise Head: Atraumatic, Normocephalic Neck: Normal Inspection, Supple, Non-Tender, Full Range of Motion Respiratory/Chest: No Respiratory Distress, Lungs Clear, Normal Breath Sounds, No Accessory Muscle Use, Chest Non-Tender Cardiovascular: Normal Peripheral Pulses, Regular Rate, Rhythm, No Edema, No Gallop, No JVD, No Murmur, No Rub GI/Abdominal Exam: Tender (LLQ) (Female) Exam: Deferred Rectal (Female) Exam: Deferred Back Exam: Normal Inspection, Full Range of Motion, NT Extremities: Normal Inspection, Normal Range of Motion, Non-Tender, Normal Capillary Refill, No Pedal Edema Neurological: Alert, Oriented, CN II-XII Intact, Normal Cognition, Normal Gait, Normal Reflexes, No Motor/Sensory Deficits Psychiatric: Normal Affect, Normal Mood Skin Exam: Warm, Dry, Intact, Normal Color, No Rash Lymphatic: No Adenopathy Course - Vital Signs Last Recorded V/S: Last Vital Signs Temp 36.9 C 11/30/17 15:13 Pulse 75 11/30/17 15:13 Resp 15 11/30/17 15:13 BP 129/71 11/30/17 15:13 Pulse Ox 100 11/30/17 15:13 - Orders/Labs/Meds Orders: Active Orders 24 hr Category Date Time Status UA W/MICROSCOPIC [URIN] Stat Lab 11/30/17 13:00 Ordered Labs: Laboratory Tests 11/30/17 11/30/17 11/30/17 Range/Units 13:00 14:30 14:30 WBC 4.7 L (5.0-10.0) 10^3/uL RBC 4.48 (4.2-5.4) 10^6/uL Hgb 10.3 L (12.0-16.0) g/dL Hct 34.1 L (37.0-47.0) % MCV 76.1 L (80-100) fL MCH 23.0 L (27.0-34.0) pg MCHC 30.2 L (33.0-35.0) g/dL Plt Count 365 (150-450) 10^3/uL Neut % (Auto) 50.0 (42.2-75.2) % Lymph % (Auto) 38.3 (20.5-50.1) % [place] % (Auto) 7.7 (2-8) % Eos % (Auto) 3.8 H (1.0-3.0) % Baso % (Auto) 0.2 (0.0-1.0) % Sodium 137 (135-145) mmol/L Potassium 4.0 (3.6-5.0) mmol/L Chloride 106 (101-111) mmol/L Carbon Dioxide 24.0 (21.0-31.0) mmol/L Anion Gap 11.0 BUN 7 (7-18) mg/dL Creatinine 0.7 (0.6-1.3) mg/dL Est Cr Clr Drug Dosing 99.98 mL/min Estimated GFR (MDRD) > 60 BUN/Creatinine Ratio 10.00 Glucose 100 (74-105) mg/dL Calcium 8.7 (8.4-10.2) mg/dl Total Bilirubin 0.6 (0.2-1.0) mg/dL AST 22 (10-42) IU/L ALT 19 (10-60) IU/L Alkaline Phosphatase 63 (42-121) IU/L Total Protein 7.6 (6.7-8.2) g/dl Albumin 4.1 (3.2-5.5) g/dl Globulin 3.5 Albumin/Globulin Ratio 1.17 Urine Color Light yellow (YELLOW) Urine Appearance Clear (CLEAR) Urine pH 6.5 (5.0-9.0) Ur Specific [place] <= 1.005 (1.005-1.030) Urine Protein Negative (NEGATIVE) Urine Glucose (UA) Negative (NEGATIVE) Urine Ketones Negative (NEGATIVE) Urine Occult Blood Negative (NEGATIVE) Urine Nitrite Negative (NEGATIVE) Urine Bilirubin Negative (NEGATIVE) Urine Urobilinogen 0.2 (0.2-1.0) mg/dL Ur Leukocyte Esterase Trace H (NEGATIVE) Urine RBC 0-5 /HPF Urine WBC 0-5 (0-5/HPF) /HPF Ur Epithelial Cells Many H /HPF Urine Bacteria Few (0-FEW/HPF) /HPF Urinalysis Comment Meds: Medications Discontinued Medications Generic Name Dose Route Start Last Admin Trade Name Joseq PRN Reason Stop Dose Admin Hydromorphone HCl 0.5 mg 11/30/17 14:24 11/30/17 14:36 Dilaudid IVPUSH 11/30/17 14:25 0.5 mg ONETIME ONE Administration - Re-Assessments/Exams Free Text/Narrative Re-Assessment/Exam: 11/30/17 15:41 A call was placed to the [facility] (talked to Dolores with Dr. Lu) to attempt to get the patient established with a referral to see a GI specialist. Departure - Departure Time of Disposition: 15:36 Disposition: Home, Self-Care 01 Condition: Fair Clinical Impression: Diverticulosis large intestine w/o perforation or abscess w/o bleeding Abdominal pain Qualifiers: Abdominal location: left lower quadrant Qualified Code(s): R10.32 - Left lower quadrant pain - Discharge Information *PRESCRIPTION DRUG MONITORING PROGRAM REVIEWED*: Not Applicable *COPY OF PRESCRIPTION DRUG MONITORING REPORT IN PATIENT SELAM: Not Applicable Instructions: Abdominal Pain, Adult, [id number] Forms: ED Department Discharge Care Plan Goals: The patient was advised of the lab results and the review of the past CT results by our radiologist. The patient was discharged with a script for [place] ( ) #12 to take 1 by mouth every 4 hours as needed for pain. A call was placed to [facility] regarding the results of the patient's past 3 visits along with a recommendation for the patient to have a referral to see a GI specialist. If the patient has any additional symptoms or concerns, the patient should either return to the emergency department or visit her primary care facility. - My Orders Last 24 Hours: My Active Orders 11/30/17 13:00 UA W/MICROSCOPIC [URIN] Stat - Assessment/Plan Last 24 Hours: My Active Orders 11/30/17 13:00 UA W/MICROSCOPIC [URIN] Stat
[2017-11-30 14:57] LABS: CHLORIDE,CL 106 mmol/L (101-111); SODIUM,NA 137 mmol/L (135-145)
[2017-11-30 15:13] VITALS: BP 129/71
== END 2017-11-30 15:55 | disposition home or self-care (01) ==
LOC: DL.ED 12:06
DX: K57.30 Diverticulosis of large intestine without perforation or abscess without bleeding (principal); F17.210 Nicotine dependence, cigarettes, uncomplicated; Z88.8 Allergy status to other drugs, medicaments and biological substances
CPT/HCPCS: 36415; 80053; 81001; 85025; 96374; 99284; J1170

== ENCOUNTER 2017-12-05 19:58 | Emergency (ER) | payer OTHER ==
[2017-12-05 20:09] VITALS: BP 123/63
--- NOTE | 2017-12-05 20:36 | EDM.PDOC ---
ED HPI GENERAL MEDICAL PROBLEM - General Chief Complaint: Abdominal Pain Stated Complaint: SICK [id number] Time Seen by Provider: 12/05/17 20:20 Source of Information: Reports: Patient History Limitations: Reports: No Limitations - History of Present Illness INITIAL COMMENTS - FREE TEXT/NARRATIVE: This 37 yo female patient reports to the ED with continued abdominal pain ( despite 4 clinic visits and 3 previous ED visits), right lower jaw swelling and pain as well as burning with urination. The patient reports her last visit with Dr. Tony resulted in her getting several different medications including a Magic Mouth Wash (patient reports that she was not having dental pain at that time). The patient reports that she does have a GI consult established for 2 weeks from now. The patient is currently trying to work on getting her primary care facility switched to [facility] due to multiple visits and no changes in her symptoms. In the previous visits in the ED, the patient has had lab work and 2 CT scans of her abdomen. The CT scans demonstrated diverticuli and small renal stones. 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 Left Lower Abdomen Pain Score (Numeric/FACES): 8 - Related Data Allergies Allergy/AdvReac Type Severity Reaction Status Date / Time acetaminophen Allergy Unknown Shortness Verified 12/05/17 20:24 [From Darvocet-N 100] of Breath erythromycin base Allergy Unknown Cannot Verified 12/05/17 20:24 [Erythromycin Base] Remember metoclopramide HCl Allergy Unknown Shortness Verified 12/05/17 20:24 [From Reglan] of Breath nabumetone [From Relafen] Allergy Unknown Shortness Verified 12/05/17 20:24 of Breath propoxyphene napsylate Allergy Unknown Shortness Verified 12/05/17 20:24 [From Darvocet-N 100] of Breath Home Meds: Home Meds PNV95/Ferrous Fumarate/FA [ Tablet] 1 tab PO DAILY 11/27/17 [History] Dicyclomine [Bentyl] 20 mg PO TID 12/05/17 [History] Ibuprofen [Motrin] 600 mg PO Q6H PRN 12/05/17 [History] Promethazine [Phenergan] 25 mg PO Q6H PRN 12/05/17 [History] Past Medical History - Past Health History Medical/Surgical History: Denies Medical/Surgical History HEENT History: Reports: None Cardiovascular History: Reports: None Respiratory History: Reports: Asthma Gastrointestinal History: Reports: Diverticulosis Genitourinary History: Reports: Renal Calculus 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: , Other (See Below) Other ASSOCIATE PROFESSOR OF LIBRARY MEDIA History: tubal ligation Musculoskeletal History: Reports: None Neurological History: Reports: Migraines Other Neuro History: botox treatment took care of headaches Psychiatric History: Reports: Anxiety, Panic Attack Endocrine/Metabolic History: Reports: None Hematologic History: Reports: None Immunologic History: Reports: None Oncologic (Cancer) History: Reports: None Dermatologic History: Reports: None - Infectious Disease History Infectious Disease History: Reports: Measles - Past Surgical History HEENT Surgical History: Reports: Tonsillectomy Respiratory Surgical History: Reports: None GI Surgical History: Reports: Cholecystectomy Female Surgical History: Reports: Tubal Ligation Social & Family History - Family History Family Medical History: Noncontributory - Tobacco Use Smoking Status *Q: Current Every Day Smoker Years of Tobacco use: 4 Packs/Tins Daily: 2 - Caffeine Use Caffeine Use: Reports: Soda Other Caffeine Use: Has 1 energy drink and and 1 soda per day. - Recreational Drug Use Recreational Drug Use: No - Living Situation & Occupation Living situation: Reports: Single, with Family Occupation: Employed ED ROS GENERAL - Review of Systems Review Of Systems: ROS reveals no pertinent complaints other than HPI. ED EXAM, GENERAL - Physical Exam Exam: See Below Exam Limited By: No Limitations General Appearance: Alert, WD/WN, Moderate Distress Eye Exam: Bilateral Eye: EOMI, Normal Inspection, PERRL Ears: Normal External Exam, Normal Canal, Hearing Grossly Normal, Normal TMs Nose: Normal Inspection, Normal Mucosa, No Blood Throat/Mouth: Other (Dental caries to the gum line with inflammation (right lower posterior)) Head: Atraumatic, Normocephalic Neck: Normal Inspection, Supple, Non-Tender, Full Range of Motion Respiratory/Chest: No Respiratory Distress Cardiovascular: Normal Peripheral Pulses, Regular Rate, Rhythm, No Edema, No Gallop, No JVD, No Murmur, No Rub GI/Abdominal: Normal Bowel Sounds, Soft, No Organomegaly, No Distention, No Abnormal Bruit, No Mass, Pelvis Stable, Tender (left sided tenderness) (Female) Exam: Deferred Rectal (Female) Exam: Deferred Back Exam: CVA Tenderness (L) Extremities: Normal Inspection, Normal Range of Motion, Non-Tender, Normal Capillary Refill, No Pedal Edema Neurological: Alert, Oriented, CN II-XII Intact, Normal Cognition, Normal Gait, Normal Reflexes, No Motor/Sensory Deficits Psychiatric: Normal Affect, Normal Mood Skin Exam: Warm, Dry, Intact, Normal Color, No Rash Lymphatic: No Adenopathy Course - Vital Signs Last Recorded V/S: Last Vital Signs Temp 37.0 C 12/05/17 20:08 Pulse 67 12/05/17 20:08 Resp 14 12/05/17 20:08 BP 123/63 12/05/17 20:08 Pulse Ox 100 12/05/17 20:08 - Orders/Labs/Meds Orders: Active Orders 24 hr Category Date Time Status DRUG SCREEN URINE BIORAD [URCHEM] Stat Lab 12/05/17 20:29 Ordered UA W/MICROSCOPIC [URIN] Stat Lab 12/05/17 20:29 Ordered Labs: Laboratory Tests 12/05/17 12/05/17 12/05/17 Range/Units 20:29 20:29 20:35 WBC 6.1 (5.0-10.0) 10^3/uL RBC 4.07 L (4.2-5.4) 10^6/uL Hgb 9.4 L (12.0-16.0) g/dL Hct 31.5 L (37.0-47.0) % MCV 77.4 L (80-100) fL MCH 23.1 L (27.0-34.0) pg MCHC 29.8 L (33.0-35.0) g/dL Plt Count 355 (150-450) 10^3/uL Neut % (Auto) 37.5 L (42.2-75.2) % Lymph % (Auto) 49.2 (20.5-50.1) % [place] % (Auto) 9.0 H (2-8) % Eos % (Auto) 4.1 H (1.0-3.0) % Baso % (Auto) 0.2 (0.0-1.0) % Sodium (135-145) mmol/L Potassium (3.6-5.0) mmol/L Chloride (101-111) mmol/L Carbon Dioxide (21.0-31.0) mmol/L Anion Gap BUN (7-18) mg/dL Creatinine (0.6-1.3) mg/dL Est Cr Clr Drug Dosing mL/min Estimated GFR (MDRD) BUN/Creatinine Ratio Glucose (74-105) mg/dL Calcium (8.4-10.2) mg/dl Total Bilirubin (0.2-1.0) mg/dL AST (10-42) IU/L ALT (10-60) IU/L Alkaline Phosphatase (42-121) IU/L Total Protein (6.7-8.2) g/dl Albumin (3.2-5.5) g/dl Globulin Albumin/Globulin Ratio Urine Color Yellow (YELLOW) Urine Appearance Clear (CLEAR) Urine pH 7.0 (5.0-9.0) Ur Specific [place] 1.015 (1.005-1.030) Urine Protein Negative (NEGATIVE) Urine Glucose (UA) Negative (NEGATIVE) Urine Ketones Negative (NEGATIVE) Urine Occult Blood Moderate H (NEGATIVE) Urine Nitrite Negative (NEGATIVE) Urine Bilirubin Negative (NEGATIVE) Urine Urobilinogen 0.2 (0.2-1.0) mg/dL Ur Leukocyte Esterase Negative (NEGATIVE) Urine RBC 0-5 /HPF Urine WBC 0-5 (0-5/HPF) /HPF Ur Epithelial Cells Few /HPF Amorphous Sediment Rare (0/HPF) /HPF Urine Bacteria Rare (0-FEW/HPF) /HPF Urine Mucus Rare /LPF Urine Opiates Screen Negative (NEGATIVE) Ur Oxycodone Screen Positive H (NEGATIVE) Urine Methadone Screen Negative (NEGATIVE) Ur Barbiturates Screen Negative (NEGATIVE) U Tricyclic Antidepress Negative (NEGATIVE) Ur Phencyclidine Scrn Negative (NEGATIVE) Ur Amphetamine Screen Negative (NEGATIVE) U Methamphetamines Scrn Negative (NEGATIVE) Urine MDMA Screen Negative (NEGATIVE) U Benzodiazepines Scrn Negative (NEGATIVE) Urine Cocaine Screen Negative (NEGATIVE) U Marijuana (THC) Screen Negative (NEGATIVE) 12/05/17 Range/Units 20:35 WBC (5.0-10.0) 10^3/uL RBC (4.2-5.4) 10^6/uL Hgb (12.0-16.0) g/dL Hct (37.0-47.0) % MCV (80-100) fL MCH (27.0-34.0) pg MCHC (33.0-35.0) g/dL Plt Count (150-450) 10^3/uL Neut % (Auto) (42.2-75.2) % Lymph % (Auto) (20.5-50.1) % [place] % (Auto) (2-8) % Eos % (Auto) (1.0-3.0) % Baso % (Auto) (0.0-1.0) % Sodium 140 (135-145) mmol/L Potassium 3.7 (3.6-5.0) mmol/L Chloride 108 (101-111) mmol/L Carbon Dioxide 26.0 (21.0-31.0) mmol/L Anion Gap 9.7 BUN 6 L (7-18) mg/dL Creatinine 0.7 (0.6-1.3) mg/dL Est Cr Clr Drug Dosing 99.98 mL/min Estimated GFR (MDRD) > 60 BUN/Creatinine Ratio 8.57 Glucose 100 (74-105) mg/dL Calcium 8.3 L (8.4-10.2) mg/dl Total Bilirubin 0.2 (0.2-1.0) mg/dL AST 19 (10-42) IU/L ALT 13 (10-60) IU/L Alkaline Phosphatase 63 (42-121) IU/L Total Protein 7.1 (6.7-8.2) g/dl Albumin 3.8 (3.2-5.5) g/dl Globulin 3.3 Albumin/Globulin Ratio 1.15 Urine Color (YELLOW) Urine Appearance (CLEAR) Urine pH (5.0-9.0) Ur Specific [place] (1.005-1.030) Urine Protein (NEGATIVE) Urine Glucose (UA) (NEGATIVE) Urine Ketones (NEGATIVE) Urine Occult Blood (NEGATIVE) Urine Nitrite (NEGATIVE) Urine Bilirubin (NEGATIVE) Urine Urobilinogen (0.2-1.0) mg/dL Ur Leukocyte Esterase (NEGATIVE) Urine RBC /HPF Urine WBC (0-5/HPF) /HPF Ur Epithelial Cells /HPF Amorphous Sediment (0/HPF) /HPF Urine Bacteria (0-FEW/HPF) /HPF Urine Mucus /LPF Urine Opiates Screen (NEGATIVE) Ur Oxycodone Screen (NEGATIVE) Urine Methadone Screen (NEGATIVE) Ur Barbiturates Screen (NEGATIVE) U Tricyclic Antidepress (NEGATIVE) Ur Phencyclidine Scrn (NEGATIVE) Ur Amphetamine Screen (NEGATIVE) U Methamphetamines Scrn (NEGATIVE) Urine MDMA Screen (NEGATIVE) U Benzodiazepines Scrn (NEGATIVE) Urine Cocaine Screen (NEGATIVE) U Marijuana (THC) Screen (NEGATIVE) Meds: Medications Discontinued Medications Generic Name Dose Route Start Last Admin Trade Name David PRN Reason Stop Dose Admin Hydrocodone Bitart/Acetaminophen 1 tab 12/05/17 21:15 [place] 325-10 Mg PO 12/05/17 21:16 ONETIME ONE Cephalexin 500 mg 12/05/17 21:15 Keflex PO 12/05/17 21:16 ONETIME ONE Ondansetron HCl 4 mg 12/05/17 21:15 Zofran IV 12/05/17 21:16 ONETIME ONE - Re-Assessments/Exams Free Text/Narrative Re-Assessment/Exam: 12/05/17 21:18 Discussed the examination and lab results with the patient. Collectively decided not to do a CT scan due to the recent 2 CT scans of her abdomen with similar symptoms. The patient agreed to avoiding the scan at this time. Departure - Departure Time of Disposition: 21:19 Disposition: Home, Self-Care 01 Condition: Fair Clinical Impression: Dental abscess Abdominal pain Qualifiers: Abdominal location: left lower quadrant Qualified Code(s): R10.32 - Left lower quadrant pain - Discharge Information *PRESCRIPTION DRUG MONITORING PROGRAM REVIEWED*: Not Applicable *COPY OF PRESCRIPTION DRUG MONITORING REPORT IN PATIENT SELAM: Not Applicable Instructions: Abdominal Pain, Adult, Ujeb-ly-Afpr, Dental Abscess, [id number] Forms: ED Department Discharge Care Plan Goals: The patient was advised of the examination and lab results during the visit. The patient was given a dose of IV Zofran, an oral dose of Keflex and an oral dose of [place] while in the ED. The patient was discharged with Keflex (500 mg) # 1 to take in the morning and Zofran ODT (4 mg) #4 to take 1 by mouth every 6 hours as needed for nausea. The patient was discharged with a script for Keflex (500 mg) #40 to take 1 by mouth 4 times per day for 10 days. The patient should follow-up with her primary care facility and her dentist for continued evaluation and management. If the patient has any additional symptoms or concerns, the patient should visit her primary care facility or return to the emergency department. - My Orders Last 24 Hours: My Active Orders 12/05/17 20:29 DRUG SCREEN URINE BIORAD [URCHEM] Stat UA W/MICROSCOPIC [URIN] Stat - Assessment/Plan Last 24 Hours: My Active Orders 12/05/17 20:29 DRUG SCREEN URINE BIORAD [URCHEM] Stat UA W/MICROSCOPIC [URIN] Stat
[2017-12-05 21:02] LABS: ANION GAP 9.7; CHLORIDE,CL 108 mmol/L (101-111); SODIUM,NA 140 mmol/L (135-145)
[2017-12-05] MEDS ORDERED: Ondansetron 4 MG/2 ML SDV IV ONE (21:15)
[2017-12-05] MEDS ORDERED: Cephalexin 500 MG Cap PO ONE (21:15)
[2017-12-05] MEDS ORDERED: Acetaminophen/HYDROcodone 325-10 MG Tab PO ONE (21:15)
[2017-12-05] MEDS ORDERED: Ondansetron 4 MG Tab.DIS ONE (21:27)
[2017-12-05] MEDS ORDERED: Cephalexin 500 MG Cap ONE (21:28)
== END 2017-12-05 21:39 | disposition home or self-care (01) ==
LOC: DL.ED 19:58
DX: R10.32 Left lower quadrant pain (principal); K04.7 Periapical abscess without sinus; J45.909 Unspecified asthma, uncomplicated; F17.210 Nicotine dependence, cigarettes, uncomplicated; F41.0 Panic disorder [episodic paroxysmal anxiety]; Z88.8 Allergy status to other drugs, medicaments and biological substances; Z79.899 Other long term (current) drug therapy
CPT/HCPCS: 36415; 80053; 80305; 81001; 85025; 96374; 99284; A9270; J2405

== ENCOUNTER 2018-01-03 17:18 | Emergency (ER) | payer OTHER ==
[2018-01-03 17:36] VITALS: BP 113/69
--- NOTE | 2018-01-03 18:59 | EDM.PDOC ---
<Deisy Aragon - Last Filed: 01/03/18 19:06> ED HPI GENERAL MEDICAL PROBLEM - General Chief Complaint: Genitourinary Problem Stated Complaint: PAIN IN ABD [id number] Time Seen by Provider: 01/03/18 18:05 Source of Information: Reports: Patient, RN, RN Notes Reviewed History Limitations: Reports: No Limitations - History of Present Illness INITIAL COMMENTS - FREE TEXT/NARRATIVE: Pt presents to the ER with c/o left flank, LLQ pain. Pt states she has had N/V/ D and uncomfortable for the past several weeks. States she has been seen by GI and will be having an EGD and a colonoscopy. She has an appt with urology on Thursday. Denies fever or chills. Onset: Gradual Left Flank Pain Score (Numeric/FACES): 6 - Related Data Allergies Allergy/AdvReac Type Severity Reaction Status Date / Time acetaminophen Allergy Unknown Shortness Verified 01/03/18 17:31 [From Darvocet-N 100] of Breath erythromycin base Allergy Unknown Cannot Verified 01/03/18 17:31 [Erythromycin Base] Remember metoclopramide HCl Allergy Unknown Shortness Verified 01/03/18 17:31 [From Reglan] of Breath nabumetone [From Relafen] Allergy Unknown Shortness Verified 01/03/18 17:31 of Breath propoxyphene napsylate Allergy Unknown Shortness Verified 01/03/18 17:31 [From Darvocet-N 100] of Breath Home Meds: Home Meds PNV95/Ferrous Fumarate/FA [ Tablet] 1 tab PO DAILY 11/27/17 [History] Ibuprofen [Motrin] 600 mg PO Q6H PRN 12/05/17 [History] Cyanocobalamin (Vitamin B-12) [Vitamin B-12] 1,000 mcg IM ASDIRECTED 01/03/18 [ History] Past Medical History - Past Health History Medical/Surgical History: Denies Medical/Surgical History HEENT History: Reports: None Cardiovascular History: Reports: None Respiratory History: Reports: Asthma Gastrointestinal History: Reports: Diverticulosis Genitourinary History: Reports: Renal Calculus 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: Reports: , Other (See Below) Other 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: tubal ligation Musculoskeletal History: Reports: None Neurological History: Reports: Migraines Other Neuro History: botox treatment took care of headaches Psychiatric History: Reports: Anxiety, Panic Attack Endocrine/Metabolic History: Reports: None Hematologic History: Reports: None Immunologic History: Reports: None Oncologic (Cancer) History: Reports: None Dermatologic History: Reports: None - Infectious Disease History Infectious Disease History: Reports: Measles - Past Surgical History Head Surgeries/Procedures: Reports: None HEENT Surgical History: Reports: Tonsillectomy Respiratory Surgical History: Reports: None GI Surgical History: Reports: Cholecystectomy Female Surgical History: Reports: Tubal Ligation Social & Family History - Family History Family Medical History: Noncontributory - Tobacco Use Smoking Status *Q: Current Every Day Smoker Years of Tobacco use: 4 Packs/Tins Daily: 1 - Caffeine Use Caffeine Use: Reports: Coffee, Energy Drinks, Soda Other Caffeine Use: Has 1 energy drink and and 1 soda per day. - Recreational Drug Use Recreational Drug Use: No - Living Situation & Occupation Living situation: Reports: Single, with Family Occupation: Employed ED ROS GENERAL - Review of Systems Review Of Systems: ROS reveals no pertinent complaints other than HPI. ED EXAM, RENAL/ - Physical Exam Exam: See Below Exam Limited By: No Limitations General Appearance: Alert, WD/WN, Mild Distress Eye Exam: Bilateral Eye: EOMI, Normal Inspection Ears: Normal External Exam, Hearing Grossly Normal Nose: Normal Inspection Throat/Mouth: Normal Inspection, Normal Voice, No Airway Compromise Head: Atraumatic, Normocephalic Neck: Normal Inspection, Supple, Non-Tender, Full Range of Motion Respiratory/Chest: No Respiratory Distress, Lungs Clear, Normal Breath Sounds, No Accessory Muscle Use, Chest Non-Tender Cardiovascular: Normal Peripheral Pulses, Regular Rate, Rhythm, No Edema, No Gallop, No JVD, No Murmur, No Rub GI/Abdominal: Normal Bowel Sounds, Soft, No Distention, Tender (LLQ) (Female) Exam: Deferred Rectal (Female) Exam: Deferred Back Exam: Normal Inspection, Full Range of Motion Extremities: Normal Inspection, Normal Range of Motion, Non-Tender, No Pedal Edema, Normal Capillary Refill Neurological: Alert, Oriented, CN II-XII Intact, Normal Cognition, Normal Gait, Normal Reflexes, No Motor/Sensory Deficits Psychiatric: Normal Affect, Normal Mood Skin Exam: Warm, Dry, Intact, Normal Color, No Rash Lymphatic: No Adenopathy Course - Vital Signs Last Recorded V/S: Last Vital Signs Temp 37.1 C 01/03/18 17:34 Pulse 80 01/03/18 17:34 Resp 16 01/03/18 17:34 BP 113/69 01/03/18 17:34 Pulse Ox 100 01/03/18 17:34 - Orders/Labs/Meds Orders: Active Orders 24 hr Category Date Time Status Abdomen Pelvis wo Cont [CT] Urgent Exams 01/03/18 19:22 Taken Labs: Laboratory Tests 01/03/18 01/03/18 01/03/18 Range/Units 17:40 17:40 18:36 WBC 5.5 (5.0-10.0) 10^3/uL RBC 4.30 (4.2-5.4) 10^6/uL Hgb 9.9 L (12.0-16.0) g/dL Hct 33.3 L (37.0-47.0) % MCV 77.4 L (80-100) fL MCH 23.0 L (27.0-34.0) pg MCHC 29.7 L (33.0-35.0) g/dL Plt Count 383 (150-450) 10^3/uL Neut % (Auto) 39.2 L (42.2-75.2) % Lymph % (Auto) 46.7 (20.5-50.1) % [place] % (Auto) 8.7 H (2-8) % Eos % (Auto) 4.7 H (1.0-3.0) % Baso % (Auto) 0.7 (0.0-1.0) % Sodium (135-145) mmol/L Potassium (3.6-5.0) mmol/L Chloride (101-111) mmol/L Carbon Dioxide (21.0-31.0) mmol/L Anion Gap BUN (7-18) mg/dL Creatinine (0.6-1.3) mg/dL Est Cr Clr Drug Dosing mL/min Estimated GFR (MDRD) BUN/Creatinine Ratio Glucose (74-105) mg/dL Calcium (8.4-10.2) mg/dl Total Bilirubin (0.2-1.0) mg/dL AST (10-42) IU/L ALT (10-60) IU/L Alkaline Phosphatase (42-121) IU/L Total Protein (6.7-8.2) g/dl Albumin (3.2-5.5) g/dl Globulin Albumin/Globulin Ratio Urine Color Other (YELLOW) Urine Appearance Cloudy (CLEAR) Urine pH 5.5 (5.0-9.0) Ur Specific [place] >= 1.030 (1.005-1.030) Urine Protein 30 H (NEGATIVE) Urine Glucose (UA) Negative (NEGATIVE) Urine Ketones Negative (NEGATIVE) Urine Occult Blood Large H (NEGATIVE) Urine Nitrite Negative (NEGATIVE) Urine Bilirubin Negative (NEGATIVE) Urine Urobilinogen 0.2 (0.2-1.0) mg/dL Ur Leukocyte Esterase Negative (NEGATIVE) Urine RBC >100 H /HPF Urine WBC 0-5 (0-5/HPF) /HPF Ur Epithelial Cells Moderate H /HPF Urine Bacteria Many H (0-FEW/HPF) /HPF Urinalysis Comment Urine HCG, Qual Negative 01/03/18 Range/Units 18:36 WBC (5.0-10.0) 10^3/uL RBC (4.2-5.4) 10^6/uL Hgb (12.0-16.0) g/dL Hct (37.0-47.0) % MCV (80-100) fL MCH (27.0-34.0) pg MCHC (33.0-35.0) g/dL Plt Count (150-450) 10^3/uL Neut % (Auto) (42.2-75.2) % Lymph % (Auto) (20.5-50.1) % [place] % (Auto) (2-8) % Eos % (Auto) (1.0-3.0) % Baso % (Auto) (0.0-1.0) % Sodium 138 (135-145) mmol/L Potassium 3.9 (3.6-5.0) mmol/L Chloride 108 (101-111) mmol/L Carbon Dioxide 25.0 (21.0-31.0) mmol/L Anion Gap 8.9 BUN 7 (7-18) mg/dL Creatinine 0.7 (0.6-1.3) mg/dL Est Cr Clr Drug Dosing 95.94 mL/min Estimated GFR (MDRD) > 60 BUN/Creatinine Ratio 10.00 Glucose 97 (74-105) mg/dL Calcium 8.3 L (8.4-10.2) mg/dl Total Bilirubin 0.5 (0.2-1.0) mg/dL AST 22 (10-42) IU/L ALT 13 (10-60) IU/L Alkaline Phosphatase 64 (42-121) IU/L Total Protein 7.4 (6.7-8.2) g/dl Albumin 3.9 (3.2-5.5) g/dl Globulin 3.5 Albumin/Globulin Ratio 1.11 Urine Color (YELLOW) Urine Appearance (CLEAR) Urine pH (5.0-9.0) Ur Specific [place] (1.005-1.030) Urine Protein (NEGATIVE) Urine Glucose (UA) (NEGATIVE) Urine Ketones (NEGATIVE) Urine Occult Blood (NEGATIVE) Urine Nitrite (NEGATIVE) Urine Bilirubin (NEGATIVE) Urine Urobilinogen (0.2-1.0) mg/dL Ur Leukocyte Esterase (NEGATIVE) Urine RBC /HPF Urine WBC (0-5/HPF) /HPF Ur Epithelial Cells /HPF Urine Bacteria (0-FEW/HPF) /HPF Urinalysis Comment Urine HCG, Qual Meds: Medications Discontinued Medications Generic Name Dose Route Start Last Admin Trade Name Freq PRN Reason Stop Dose Admin Hydrocodone Bitart/Acetaminophen 1 tab 01/03/18 20:32 [place] 325-10 Mg PO 01/03/18 20:33 ONETIME ONE Ketorolac Tromethamine 15 mg 01/03/18 19:20 01/03/18 19:34 Toradol IVPUSH 01/03/18 19:21 15 mg ONETIME ONE Administration Ondansetron HCl 4 mg 01/03/18 19:20 01/03/18 19:32 Zofran IV 01/03/18 19:21 4 mg ONETIME ONE Administration Departure - Departure Disposition: Home, Self-Care 01 Clinical Impression: Kidney stone, Renal colic on left side - Discharge Information Instructions: Kidney Stones, [id number] Forms: ED Department Discharge Additional Instructions: 1) drink lots of liquids 2) follow up with Urologist per appointment 3) recheck as needed rx given; vicodin 5/325mg tid prn x6 - My Orders Last 24 Hours: My Active Orders 01/03/18 19:22 Abdomen Pelvis wo Cont [CT] Urgent - Assessment/Plan Last 24 Hours: My Active Orders 01/03/18 19:22 Abdomen Pelvis wo Cont [CT] Urgent <Ronaldo Muir - Last Filed: 01/03/18 20:41> Course - Orders/Labs/Meds Meds: Medications Discontinued Medications Generic Name Dose Route Start Last Admin Trade Name David PRN Reason Stop Dose Admin Hydrocodone Bitart/Acetaminophen 1 tab 01/03/18 20:32 [place] 325-10 Mg PO 01/03/18 20:33 ONETIME ONE Ketorolac Tromethamine 15 mg 01/03/18 19:20 01/03/18 19:34 Toradol IVPUSH 01/03/18 19:21 15 mg ONETIME ONE Administration Ondansetron HCl 4 mg 01/03/18 19:20 01/03/18 19:32 Zofran IV 01/03/18 19:21 4 mg ONETIME ONE Administration - Re-Assessments/Exams Free Text/Narrative Re-Assessment/Exam: 01/03/18 19:19 results discussed with pt who states she has been having blood in urine since Th with increasing pain left side. states had TL so not . 01/03/18 20:37 results discussed with pt. Departure - Departure Time of Disposition: 20:38 Condition: Fair - My Orders Last 24 Hours: My Active Orders 01/03/18 19:22 Abdomen Pelvis wo Cont [CT] Urgent - Assessment/Plan Last 24 Hours: My Active Orders 01/03/18 19:22 Abdomen Pelvis wo Cont [CT] Urgent
[2018-01-03 19:01] LABS: ANION GAP 8.9; CHLORIDE,CL 108 mmol/L (101-111); SODIUM,NA 138 mmol/L (135-145)
[2018-01-03] MEDS ORDERED: Ketorolac 30 MG/ML SDV IVPUSH ONE (19:20)
[2018-01-03] MEDS ORDERED: Ondansetron 4 MG/2 ML SDV IV ONE (19:20)
[2018-01-03] MEDS ORDERED: Acetaminophen/HYDROcodone 325-10 MG Tab PO ONE (20:32)
== END 2018-01-03 20:50 | disposition home or self-care (01) ==
LOC: DL.ED 17:18
DX: N20.0 Calculus of kidney (principal); F17.210 Nicotine dependence, cigarettes, uncomplicated; Z88.0 Allergy status to penicillin; Z88.1 Allergy status to other antibiotic agents; Z88.6 Allergy status to analgesic agent; Z79.899 Other long term (current) drug therapy
CPT/HCPCS: 36415; 74176; 80053; 81001; 81025; 85025; 96374; 96375; 99284; A9270; J1885; J2405

== ENCOUNTER 2018-12-04 05:56 | Emergency (ER) | payer MEDICAID, OTHER ==
[2018-12-04 06:16] VITALS: BP 132/92
[2018-12-04] MEDS ORDERED: Lidocaine 2% Viscous Solution 15 ML Cup PO ONE (06:20)
[2018-12-04] MEDS ORDERED: Clindamycin HCl 150 MG Cap PO ONE (06:20)
--- NOTE | 2018-12-04 06:27 | EDM.PDOC ---
ED HPI GENERAL MEDICAL PROBLEM - General Chief Complaint: General Stated Complaint: TOOTH PAIN PER PT. Time Seen by Provider: 12/04/18 06:15 Source of Information: Reports: Patient History Limitations: Reports: No Limitations - History of Present Illness INITIAL COMMENTS - FREE TEXT/NARRATIVE: This 38 yo female patient reports to the ED due to dental pain (right upper front teeth). The patient reports the pain and swelling started yesterday morning. The patient reports she took Tylenol and ibuprofen with no symptom relief. The patient reports she has not seen the dentist in "years". 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 Therapy, NSAIDS, Other Medication(s ) - Related Data Allergies Allergy/AdvReac Type Severity Reaction Status Date / Time acetaminophen Allergy Unknown Shortness Verified 03/31/18 18:12 [From Darvocet-N 100] of Breath erythromycin base Allergy Unknown Cannot Verified 03/31/18 18:12 [Erythromycin Base] Remember metoclopramide HCl Allergy Unknown Shortness Verified 03/31/18 18:12 [From Reglan] of Breath nabumetone [From Relafen] Allergy Unknown Shortness Verified 03/31/18 18:12 of Breath propoxyphene napsylate Allergy Unknown Shortness Verified 03/31/18 18:12 [From Darvocet-N 100] of Breath Home Meds: Home Meds PNV95/Ferrous Fumarate/FA [ Tablet] 1 tab PO DAILY 11/27/17 [History] Ibuprofen [Motrin] 600 mg PO Q6H PRN 12/05/17 [History] Cyanocobalamin (Vitamin B-12) [Vitamin B-12] 1,000 mcg IM ASDIRECTED 01/03/18 [ History] Promethazine HCl 25 mg PO DAILY 01/07/18 [History] Albuterol [Ventolin HFA] 2 puff INH ASDIRECTED PRN 03/31/18 [History] Past Medical History - Past Health History Medical/Surgical History: Denies Medical/Surgical History HEENT History: Reports: Impaired Vision Cardiovascular History: Reports: None Respiratory History: Reports: Asthma, Bronchitis, Recurrent Gastrointestinal History: Reports: Diverticulosis Genitourinary History: Reports: Renal Calculus 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: , Other (See Below) Other ACCOUNTS PAYABLE ACCOUNTANT History: tubal ligation Musculoskeletal History: Reports: None Neurological History: Reports: Migraines Other Neuro History: botox treatment took care of headaches Psychiatric History: Reports: Anxiety, Panic Attack Endocrine/Metabolic History: Reports: None Hematologic History: Reports: None Immunologic History: Reports: None Oncologic (Cancer) History: Reports: None Dermatologic History: Reports: None - Infectious Disease History Infectious Disease History: Reports: Measles - Past Surgical History Head Surgeries/Procedures: Reports: None HEENT Surgical History: Reports: Tonsillectomy GI Surgical History: Reports: Cholecystectomy Female Surgical History: Reports: Tubal Ligation Social & Family History - Family History Family Medical History: Noncontributory - Tobacco Use Smoking Status *Q: Current Every Day Smoker Years of Tobacco use: 5 Packs/Tins Daily: 0.3 Used Tobacco, but Quit: No Second Hand Smoke Exposure: Yes - Caffeine Use Caffeine Use: Reports: Coffee, Energy Drinks, Soda, Tea Other Caffeine Use: Has 1 energy drink and and 1 soda per day. - Recreational Drug Use Recreational Drug Use: No - Living Situation & Occupation Living situation: Reports: Single, with Family Occupation: Employed ED ROS GENERAL - Review of Systems Review Of Systems: ROS reveals no pertinent complaints other than HPI. ED EXAM, GENERAL - Physical Exam Exam: See Below Exam Limited By: No Limitations General Appearance: Alert, WD/WN, Moderate Distress Eye Exam: Bilateral Eye: EOMI, Normal Inspection, PERRL Ears: Normal External Exam, Normal Canal, Hearing Grossly Normal, Normal TMs Nose: Normal Inspection, Normal Mucosa, No Blood Throat/Mouth: Inflammation (right upper lip/mouth), Other (Multiple dental caries ) Head: Facial Swelling Neck: Normal Inspection, Supple, Non-Tender, Full Range of Motion Respiratory/Chest: No Respiratory Distress, Lungs Clear, Normal Breath Sounds, No Accessory Muscle Use, Chest Non-Tender Cardiovascular: Normal Peripheral Pulses, Regular Rate, Rhythm, No Edema, No Gallop, No JVD, No Murmur, No Rub GI/Abdominal: Normal Bowel Sounds, Soft, Non-Tender, No Organomegaly, No Distention, No Abnormal Bruit, No Mass (Female) Exam: Deferred Rectal (Female) Exam: Deferred Back Exam: Normal Inspection, Full Range of Motion, NT Extremities: Normal Inspection, Normal Range of Motion, Non-Tender, Normal Capillary Refill, No Pedal Edema Neurological: Alert, Oriented, CN II-XII Intact, Normal Cognition, Normal Gait, Normal Reflexes, No Motor/Sensory Deficits Psychiatric: Normal Affect, Normal Mood Lymphatic: No Adenopathy Course - Vital Signs Last Recorded V/S: Last Vital Signs Temp 36.8 C 12/04/18 06:11 Pulse 93 12/04/18 06:11 Resp 18 12/04/18 06:11 BP 132/92 H 12/04/18 06:11 Pulse Ox 98 12/04/18 06:11 - Orders/Labs/Meds Meds: Medications Discontinued Medications Generic Name Dose Route Start Last Admin Trade Name David PRN Reason Stop Dose Admin Clindamycin HCl 300 mg 12/04/18 06:20 Cleocin PO 12/04/18 06:21 ONETIME ONE Lidocaine HCl 15 ml 12/04/18 06:20 Xylocaine 2% Viscous PO 12/04/18 06:21 ONETIME ONE Departure - Departure Time of Disposition: 06:27 Disposition: Home, Self-Care 01 Condition: Fair Clinical Impression: Dental caries, Dental abscess - Discharge Information *PRESCRIPTION DRUG MONITORING PROGRAM REVIEWED*: Yes *COPY OF PRESCRIPTION DRUG MONITORING REPORT IN PATIENT SELAM: Yes Instructions: Dental Abscess, [id number] Care Plan Goals: The patient was advised of the examination results during the visit. The patient was given an oral dose of Clindamycin (300 mg) and Viscous Lidocaine 2% (applied to a cotton ball over the area) while in the ED. The patient was discharged with a script for Clindamycin (300 mg) #40 to take 1 by mouth 4 times per day for 10 days and Viscous Lidocaine 2% #100 mL to apply 5 mL to a cotton ball applied to the area every 6 hours as needed. If the patient has any additional symptoms or concerns, the patient should visit her dental provider, her primary care facility or return to the emergency department.
== END 2018-12-04 06:35 | disposition home or self-care (01) ==
LOC: DL.ED 05:56
DX: K04.7 Periapical abscess without sinus (principal); K02.9 Dental caries, unspecified; J45.909 Unspecified asthma, uncomplicated; F17.210 Nicotine dependence, cigarettes, uncomplicated; Z88.6 Allergy status to analgesic agent; Z88.1 Allergy status to other antibiotic agents; Z88.8 Allergy status to other drugs, medicaments and biological substances; Z79.899 Other long term (current) drug therapy; Z87.442 Personal history of urinary calculi
CPT/HCPCS: 99282; A9270

== ENCOUNTER 2018-12-05 13:04 | Emergency (ER) | payer MEDICAID, OTHER ==
[2018-12-05 13:40] VITALS: BP 126/81
[2018-12-05] MEDS ORDERED: Sodium Chloride 0.9% 10 ML Syringe FLUSH PRN (14:06)
[2018-12-05] MEDS ORDERED: Dexamethasone 4 MG/ML SDV IVPUSH ONE (14:08)
[2018-12-05] MEDS ORDERED: Piperacillin/Tazobactam 3.375 GM in Sodium Chloride 0.9% 100 ML IV ONE (14:08)
[2018-12-05] MEDS ORDERED: Sodium Chloride 0.9% 1,000 ML IV ONE (14:09)
[2018-12-05] MEDS ORDERED: diphenhydrAMINE 50 MG/ML SDV IVPUSH ONE (14:09)
[2018-12-05] MEDS ORDERED: HYDROmorphone 1 MG/ML Syringe IVPUSH ONE (14:09)
[2018-12-05] MEDS ORDERED: Ondansetron 4 MG/2 ML SDV IV ONE (15:13)
--- NOTE | 2018-12-05 15:23 | EDM.PDOC ---
Scribed by Asmita Sutherland 12/05/18 [id number] for Tito Caballero MD ED HPI GENERAL MEDICAL PROBLEM - General Chief Complaint: General Stated Complaint: TOOTH PAIN/SWELLING Time Seen by Provider: 12/05/18 13:39 Source of Information: Reports: Patient, RN, RN Notes Reviewed History Limitations: Reports: No Limitations - History of Present Illness INITIAL COMMENTS - FREE TEXT/NARRATIVE: Patient presents to ER by POV with complaint of dental pain. She has swelling to the right jaw, worse then yesterday going to the left of the face. Now the right face is swollen from below the jaw all the way to around the right eye. She was seen here yesterday for dental abscess. She rates the pain 10/13. She took Ibuprofen 600mg at 1130. She is also taking her antibiotic that was started yesterday. Denies fever, chills, or N/V. Onset: Gradual Duration: Getting Worse Location: Reports: Other (dental ) Quality: Reports: Ache Severity: Severe Improves with: Reports: None Worsens with: Reports: None Associated Symptoms: Reports: No Other Symptoms Right Jaw Pain Score (Numeric/FACES): 7 - Related Data Allergies Allergy/AdvReac Type Severity Reaction Status Date / Time acetaminophen Allergy Unknown Shortness Verified 12/05/18 13:41 [From Darvocet-N 100] of Breath erythromycin base Allergy Unknown Cannot Verified 12/05/18 13:41 [Erythromycin Base] Remember metoclopramide HCl Allergy Unknown Shortness Verified 12/05/18 13:41 [From Reglan] of Breath nabumetone [From Relafen] Allergy Unknown Shortness Verified 12/05/18 13:41 of Breath propoxyphene napsylate Allergy Unknown Shortness Verified 12/05/18 13:41 [From Darvocet-N 100] of Breath Home Meds: Home Meds Ibuprofen [Motrin] 600 mg PO Q6H PRN 12/05/17 [History] Past Medical History - Past Health History Medical/Surgical History: Denies Medical/Surgical History HEENT History: Reports: Impaired Vision Cardiovascular History: Reports: None Respiratory History: Reports: Asthma, Bronchitis, Recurrent Gastrointestinal History: Reports: Diverticulosis Genitourinary History: Reports: Renal Calculus 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: , 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 (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 Musculoskeletal History: Reports: None Neurological History: Reports: Migraines Other Neuro History: botox treatment took care of headaches Psychiatric History: Reports: Anxiety, Panic Attack Endocrine/Metabolic History: Reports: None Hematologic History: Reports: None Immunologic History: Reports: None Oncologic (Cancer) History: Reports: None Dermatologic History: Reports: None - Infectious Disease History Infectious Disease History: Reports: Measles - Past Surgical History Head Surgeries/Procedures: Reports: None HEENT Surgical History: Reports: Tonsillectomy GI Surgical History: Reports: Cholecystectomy Female Surgical History: Reports: Tubal Ligation Social & Family History - Family History Family Medical History: Noncontributory - Caffeine Use Caffeine Use: Reports: Coffee, Energy Drinks, Soda, Tea Other Caffeine Use: Has 1 energy drink and and 1 soda per day. - Living Situation & Occupation Living situation: Reports: Single, with Family Occupation: Employed ED ROS GENERAL - Review of Systems Review Of Systems: ROS reveals no pertinent complaints other than HPI. ED EXAM, GENERAL - Physical Exam Exam: See Below Exam Limited By: No Limitations General Appearance: Alert, WD/WN, No Apparent Distress Eye Exam: Right Eye: Other (Rt face swollen to infraorbital area.), Bilateral Eye: EOMI, PERRL Ears: Normal External Exam, Hearing Grossly Normal Nose: Normal Inspection, Normal Mucosa, No Blood Throat/Mouth: Normal Lips, Normal Voice, No Airway Compromise, Other (Extensive dental caries, Rt mandibular molar abscess with gum swelling and Rt face swelling.) Neck: Normal Inspection Respiratory/Chest: No Respiratory Distress Cardiovascular: Regular Rate, Rhythm GI/Abdominal: Normal Bowel Sounds Neurological: Alert, Oriented, CN II-XII Intact, Normal Cognition, No Motor/ Sensory Deficits Psychiatric: Normal Affect, Normal Mood Skin Exam: Warm, Dry, Intact, Normal Color, No Rash Course - Vital Signs Last Recorded V/S: Last Vital Signs Temp 98.1 F 12/05/18 13:36 Pulse 82 12/05/18 13:36 Resp 16 12/05/18 13:36 BP 126/81 12/05/18 13:36 Pulse Ox 100 12/05/18 13:36 - Orders/Labs/Meds Orders: Active Orders 24 hr Category Date Time Status Peripheral IV Care [RC] . DIRECTED Care 12/05/18 14:06 Active Ondansetron [Zofran] Med 12/05/18 15:13 Once 4 mg IV ONETIME ONE Sodium Chloride 0.9% [Saline Flush] Med 12/05/18 14:06 Active 10 ml FLUSH ASDIRECTED PRN Peripheral IV Insertion Adult [OM.PC] Stat Oth 12/05/18 14:06 Ordered Medication Orders Sodium Chloride (Saline Flush) 10 ml FLUSH ASDIRECTED PRN PRN Reason: Keep Vein Open Last Admin: 12/05/18 14:46 Dose: 10 ml Labs: Laboratory Tests 12/05/18 12/05/18 Range/Units 14:18 14:18 WBC 13.0 H (5.0-10.0) 10^3/uL RBC 4.63 (4.2-5.4) 10^6/uL Hgb 10.5 L (12.0-16.0) g/dL Hct 34.6 L (37.0-47.0) % MCV 74.7 L (80-100) fL MCH 22.7 L (27.0-34.0) pg MCHC 30.3 L (33.0-35.0) g/dL Plt Count 362 (150-450) 10^3/uL Neut % (Auto) 76.9 H (42.2-75.2) % Lymph % (Auto) 15.6 L (20.5-50.1) % [place] % (Auto) 6.3 (2-8) % Eos % (Auto) 1.1 (1.0-3.0) % Baso % (Auto) 0.1 (0.0-1.0) % C-Reactive Protein 17.3 H (0.0-1.3) mg/dL Meds: Medications Generic Name Dose Route Start Last Admin Trade Name Freq PRN Reason Stop Dose Admin Sodium Chloride 10 ml 12/05/18 14:06 12/05/18 14:46 Saline Flush FLUSH 10 ml ASDIRECTED PRN Administration Keep Vein Open Discontinued Medications Generic Name Dose Route Start Last Admin Trade Name Freq PRN Reason Stop Dose Admin Dexamethasone 20 mg 12/05/18 14:08 12/05/18 14:39 Dexamethasone IVPUSH 12/05/18 14:09 20 mg ONETIME ONE Administration Diphenhydramine HCl 25 mg 12/05/18 14:09 12/05/18 14:39 Benadryl IVPUSH 12/05/18 14:10 25 mg ONETIME ONE Administration Hydromorphone HCl 1 mg 12/05/18 14:12/05/18 14:40 Dilaudid IVPUSH 12/05/18 14:10 1 mg ONETIME ONE Administration Piperacillin Sod/Tazobactam 100 mls @ 200 mls/hr 12/05/18 14:08 12/05/18 14: 46 Sod 3.375 gm/ Sodium Chloride IV 12/05/18 14:37 200 mls/hr ONETIME ONE Administration Sodium Chloride 1,000 mls @ 999 mls/hr 12/05/18 14:09 12/05/18 14:46 Normal Saline IV 12/05/18 15:09 999 mls/hr .BOLUS ONE Administration Departure - Departure Time of Disposition: 15:14 Disposition: Home, Self-Care 01 Condition: Good Clinical Impression: Dental abscess, Facial cellulitis - Discharge Information *PRESCRIPTION DRUG MONITORING PROGRAM REVIEWED*: No *COPY OF PRESCRIPTION DRUG MONITORING REPORT IN PATIENT SELAM: No Instructions: Cellulitis, Adult, [id number], Dental Abscess Forms: ED Department Discharge Additional Instructions: Continue Clindamycin 300mg as prescribed. Rx: Zofran 4mg - Take 30 minutes before taking Clindamycin, or as needed for nausea. Rx: Cipro 500mg Rx: [place] (Hydrocodone) 5mg/325mg *Narcotic pain medication: Take exactly as prescribed. Do not drive while under the influence of this medication. Follow up with your dentist at the first available appointment. - My Orders Last 24 Hours: My Active Orders 12/05/18 14:06 Peripheral IV Care [RC] . DIRECTED Sodium Chloride 0.9% [Saline Flush] 10 ml FLUSH ASDIRECTED PRN Peripheral IV Insertion Adult [OM.PC] Stat 12/05/18 15:13 Ondansetron [Zofran] 4 mg IV ONETIME ONE - Assessment/Plan Last 24 Hours: My Active Orders 12/05/18 14:06 Peripheral IV Care [RC] . DIRECTED Sodium Chloride 0.9% [Saline Flush] 10 ml FLUSH ASDIRECTED PRN Peripheral IV Insertion Adult [OM.PC] Stat 12/05/18 15:13 Ondansetron [Zofran] 4 mg IV ONETIME ONE I have read and agree with the documentation that has been completed regarding this visit. By signing this record, I attest that the documentation was completed in my physical presence and is an accurate record of the encounter.
[2018-12-05] MEDS ORDERED: Ondansetron 4 MG Tab.DIS ONE (16:11)
[2018-12-05] MEDS ORDERED: Ciprofloxacin 500 MG Tab ONE (16:11)
[2018-12-05] MEDS ORDERED: Clindamycin HCl 150 MG Cap ONE (16:12)
[2018-12-05] MEDS ORDERED: Acetaminophen/HYDROcodone 325-5 MG Tab ONE (16:34)
== END 2018-12-05 15:26 | disposition home or self-care (01) ==
LOC: DL.ED 13:04
DX: K04.7 Periapical abscess without sinus (principal); L03.211 Cellulitis of face; K02.9 Dental caries, unspecified; Z88.6 Allergy status to analgesic agent; Z88.1 Allergy status to other antibiotic agents; Z88.8 Allergy status to other drugs, medicaments and biological substances
CPT/HCPCS: 36415; 85025; 86140; 96361; 96365; 96375; 99283; J1100; J1170; J1200; J2405; J2543; J7030; J7050

== ENCOUNTER 2019-12-21 02:05 | Emergency (ER) | payer MEDICAID ==
[2019-12-21 14:32] VITALS: BP 142/60; PULSE 94
[2019-12-21] MEDS ORDERED: Lidocaine 1% 30 ML SDV INJECT ONE (14:33)
[2019-12-21] MEDS ORDERED: Cephalexin 500 MG Cap PO ONE (14:34)
--- NOTE | 2019-12-21 14:35 | EDM.PDOC ---
ED HPI GENERAL MEDICAL PROBLEM - General Chief Complaint: Skin Complaint Stated Complaint: FINGER PAIN BOTH HANDS Time Seen by Provider: 12/21/19 14:25 Source of Information: Reports: Patient History Limitations: Reports: No Limitations - History of Present Illness INITIAL COMMENTS - FREE TEXT/NARRATIVE: Patient comes emergency department today with complaints of an infection to her right thumb and her left ring finger. Over the past week she had some scrapes in both of these areas and now after treating it with some home remedies it is gotten worse. They have gotten more painful red swollen. Her last tetanus shot was 4 years ago. She denies any fever or chills. No COVID exposure no COVID symptoms. - Related Data Allergies Allergy/AdvReac Type Severity Reaction Status Date / Time acetaminophen Allergy Unknown Shortness Verified 12/05/18 13:41 [From Darvocet-N 100] of Breath erythromycin base Allergy Unknown Cannot Verified 12/05/18 13:41 [Erythromycin Base] Remember metoclopramide HCl Allergy Unknown Shortness Verified 12/05/18 13:41 [From Reglan] of Breath nabumetone [From Relafen] Allergy Unknown Shortness Verified 12/05/18 13:41 of Breath propoxyphene napsylate Allergy Unknown Shortness Verified 12/05/18 13:41 [From Darvocet-N 100] of Breath Home Meds: Home Meds Ibuprofen [Motrin] 600 mg PO Q6H PRN 12/05/17 [History] Past Medical History - Past Health History Medical/Surgical History: Denies Medical/Surgical History HEENT History: Reports: Impaired Vision Cardiovascular History: Reports: None Respiratory History: Reports: Asthma, Bronchitis, Recurrent Gastrointestinal History: Reports: Diverticulosis Genitourinary History: Reports: Renal Calculus INTER [employer] History: Reports: , Other (See Below) Other INTER [employer] History: tubal ligation Musculoskeletal History: Reports: None Neurological History: Reports: Migraines Other Neuro History: botox treatment took care of headaches Psychiatric History: Reports: Anxiety, Panic Attack Endocrine/Metabolic History: Reports: None Hematologic History: Reports: None Immunologic History: Reports: None Oncologic (Cancer) History: Reports: None Dermatologic History: Reports: None - Infectious Disease History Infectious Disease History: Reports: Measles - Past Surgical History Head Surgeries/Procedures: Reports: None HEENT Surgical History: Reports: Tonsillectomy GI Surgical History: Reports: Cholecystectomy Female Surgical History: Reports: Tubal Ligation Social & Family History - Family History Family Medical History: Noncontributory - Caffeine Use Caffeine Use: Reports: Coffee, Energy Drinks, Soda, Tea Other Caffeine Use: Has 1 energy drink and and 1 soda per day. - Living Situation & Occupation Living situation: Reports: Single, with Family Occupation: Employed ED ROS GENERAL - Review of Systems Review Of Systems: Comprehensive ROS is negative, except as noted in HPI. ED EXAM, SKIN/RASH Exam: See Below Exam Limited By: No Limitations General Appearance: Alert, WD/WN, No Apparent Distress Respiratory/Chest: No Respiratory Distress Cardiovascular: Normal Peripheral Pulses Peripheral Pulses: 2+: Radial (L), Radial (R) Extremities: No: Normal Inspection (Section of the right hand on the distal phalanx pad surface of the right thumb in the middle there is about a dime size very superficial abscess. She is able to flex and extend appropriately at the IP and MCP joint. CMS is intact appropriately. No overt bony deformity. Left ring finger. She has erythema induration swelling and fluctuance surrounding the nail bed and cuticle area. There is no subungual hematoma. Patient is able to flex and extend appropriately at the DIP PIP and MCP joints of the left ring finger. This is clearly the presentation of a paronychia of the left ring finger. The rest of the hand is atraumatic unremarkable with normal CMS and no other signs of infection.) ED SKIN PROCEDURES - I&D Site: left ring finger Skin Prep: Providone-Iodine (Betadine) Local Anesthesia: Lidocaine: 1% Plain, Other (Risk and benefits of a digital block were explained to the patient. The ring finger the base of it was ends with Betadine and allowed to dry the appropriate time period. 1.5 mils of 1% lidocaine without epinephrine were injected medially and laterally at the base of the left ring finger with good anesthesia. No bleeding. The patient tolerated the procedure well.) Area Incised With: 11 Blade Drainage: Purulent, Bloody, Small Amount Probed to Break Up Loculations: Yes Sterile Dressinx4(s) Complications: No Course - Vital Signs Last Recorded V/S: Last Vital Signs Temp 97.9 F 12/21/19 14:28 Pulse 94 12/21/19 14:28 Resp 18 12/21/19 14:28 BP 142/60 H 12/21/19 14:28 Pulse Ox 99 12/21/19 14:28 - Orders/Labs/Meds Orders: Active Orders 24 hr Category Date Time Status CULTURE WOUND [RM] Stat Lab 12/21/19 14:33 Ordered Meds: Medications Discontinued Medications Generic Name Dose Route Start Last Admin Trade Name David PRN Reason Stop Dose Admin Cephalexin 500 mg 12/21/19 14:34 Keflex PO 12/21/19 14:35 ONETIME ONE Lidocaine HCl 30 ml 12/21/19 14:33 Xylocaine-Mpf 1% INJECT 12/21/19 14:34 ONETIME ONE - Re-Assessments/Exams Free Text/Narrative Re-Assessment/Exam: 12/21/19 14:54 Keflex 500 mg p.o. The abscess on the right thumb was easily opened with an 18-gauge needle and a culture was obtained. This was a very small abscess with a small amount of purulent discharge. The paronychia please see the procedure note for the incision and drainage of the paronychia. Culture was obtained of this area as well. Discharge instruction as below was explained to the patient she was comfortable with this plan and her questions answered. Departure - Departure Time of Disposition: 14:48 Disposition: Home, Self-Care 01 Clinical Impression: Acute paronychia of finger of left hand, Abscess of thumb, right - Discharge Information Instructions: Skin Abscess, [id number], Paronychia, [id number] Forms: ED Department Discharge Additional Instructions: Soak the affected fingers twice daily in Drea dish soap warm/hot water twice daily until healed. Bacitracin and bandage until healed. Tylenol and or Ibuprofen as needed for pain. Cephalexin 1 capsule 4 times a day for the next 7 days. RX given to the patient first dose given in the ED. Return to the ED if new or worsening symptoms Follow up with PCP in 7 days if concerns sooner if worse. Sepsis Event Note (ED) - Evaluation Sepsis Screening Result: No Definite Risk - Focused Exam Vital Signs: Vital Signs Temp Pulse Resp BP Pulse Ox 12/21/19 14:28 97.9 F 94 18 142/60 H 99 - My Orders Last 24 Hours: My Active Orders 12/21/19 14:33 CULTURE WOUND [RM] Stat - Assessment/Plan Last 24 Hours: My Active Orders 12/21/19 14:33 CULTURE WOUND [RM] Stat
== END 2019-12-21 15:15 | disposition home or self-care (01) ==
LOC: DL.ED 13:59
DX: L03.012 Cellulitis of left finger (principal); L02.511 Cutaneous abscess of right hand; J45.909 Unspecified asthma, uncomplicated
CPT/HCPCS: 10060; 87070; 87077; 87186; 99283-25; A9270-GY; J2001

== ENCOUNTER 2021-09-22 12:16 | Emergency (ER) | payer MEDICAID ==
[2021-09-22 12:50] VITALS: BP 134/88; PULSE 98
[2021-09-22] MEDS ORDERED: diphenhydrAMINE 50 MG Cap PO ONE (13:33)
[2021-09-22] MEDS ORDERED: predniSONE 20 MG Tab PO ONE (13:33)
== END 2021-09-22 14:05 | disposition home or self-care (01) ==
LOC: DL.ED 12:16
DX: L20.9 Atopic dermatitis, unspecified (principal); Z88.1 Allergy status to other antibiotic agents; Z88.8 Allergy status to other drugs, medicaments and biological substances
CPT/HCPCS: 99282; J7512; Q0163

== ENCOUNTER 2021-12-29 11:08 | Emergency (ER) | payer MEDICAID ==
[2021-12-29] MEDS ORDERED: Ondansetron 4 MG Tab.DIS PO ONE ×2 (11:09→12:23)
[2021-12-29] MEDS ORDERED: Acetaminophen/HYDROcodone 325-5 MG Tab PO ONE ×2 (11:09→12:25)
[2021-12-29] MEDS ORDERED: Lidocaine 2% Viscous Solution 15 ML UD PO ONE ×2 (11:09→12:22)
[2021-12-29 12:20] VITALS: BP 155/78; PULSE 74
[2021-12-29] MEDS ORDERED: Acetaminophen/HYDROcodone 325-5 MG Tab ONE (12:43)
[2021-12-29] MEDS ORDERED: Ondansetron 4 MG Tab.DIS ONE (12:44)
[2021-12-29] MEDS ORDERED: Lidocaine 2% Viscous Solution 15 ML UD ONE (12:44)
== END 2021-12-29 12:50 | disposition home or self-care (01) ==
LOC: DL.ED 11:08
DX: G89.18 Other acute postprocedural pain (principal); K08.89 Other specified disorders of teeth and supporting structures; R11.0 Nausea; F17.210 Nicotine dependence, cigarettes, uncomplicated; Z88.1 Allergy status to other antibiotic agents; Z88.8 Allergy status to other drugs, medicaments and biological substances; Z88.6 Allergy status to analgesic agent
CPT/HCPCS: 99282; A9270-GY

== ENCOUNTER 2023-04-20 13:24 | Emergency (ER) | payer MEDICAID ==
[2023-04-20 15:00] LABS: CORONAVIRUS COVID-19 NAA NEGATIVE (NEGATIVE); INFLUENZA A NAA POSITIVE (NEGATIVE); INFLUENZA B NAA NEGATIVE (NEGATIVE)
[2023-04-20] MEDS ORDERED: Ketorolac 30 MG/ML SDV IM ONE (15:06)
[2023-04-20 15:15] VITALS: BP 134/92; PULSE 71
== END 2023-04-20 15:16 | disposition home or self-care (01) ==
LOC: DL.ED 13:24
DX: J01.00 Acute maxillary sinusitis, unspecified (principal); J10.1 Influenza due to other identified influenza virus with other respiratory manifestations; Z88.1 Allergy status to other antibiotic agents; Z88.8 Allergy status to other drugs, medicaments and biological substances; Z88.6 Allergy status to analgesic agent
CPT/HCPCS: 0240U; 96372; 99283; J1885

== ENCOUNTER 2024-01-18 18:47 | Emergency (ER) | payer MEDICAID ==
[2024-01-18 19:20] VITALS: BP 139/83; PULSE 80
[2024-01-18] MEDS: Oxymetazoline 0.05% Nasal Spray 30 ML Bottle NAS ONE (19:41)
== END 2024-01-18 19:47 | disposition home or self-care (01) ==
LOC: DL.ED 18:47
DX: J06.9 Acute upper respiratory infection, unspecified (principal); B97.89 Other viral agents as the cause of diseases classified elsewhere; J45.909 Unspecified asthma, uncomplicated; Z90.49 Acquired absence of other specified parts of digestive tract; F17.210 Nicotine dependence, cigarettes, uncomplicated; Z79.899 Other long term (current) drug therapy; Z79.2 Long term (current) use of antibiotics; Z88.8 Allergy status to other drugs, medicaments and biological substances; Z88.1 Allergy status to other antibiotic agents
CPT/HCPCS: 99283; A9270-GY